=== PATIENT | female | born 1990 | race Caucasian/White ===

== ENCOUNTER → 2017-09-05 | Outpatient (CLI) | payer OTHER, BC | LOC: OD 08:51 | PROVIDERS: ATTEND Obstetrics & Gynecology Reproductive Endocrinology | DX: Z32.01 Encounter for pregnancy test, result positive (principal); N97.9 Female infertility, unspecified | CPT/HCPCS: 36415; 84144; 84702 ==

== ENCOUNTER → 2017-09-07 | Outpatient (CLI) | payer OTHER, BC | LOC: OD 07:24 | PROVIDERS: ATTEND Obstetrics & Gynecology Reproductive Endocrinology | DX: Z32.01 Encounter for pregnancy test, result positive (principal) | CPT/HCPCS: 36415; 84144; 84702 ==

== ENCOUNTER 2017-10-31 12:47 | Emergency (ER) | payer OTHER, BC ==
[2017-10-31] MEDS ORDERED: METOCLOPRAMIDE HCL 10 MG TABLET PO ONE (13:54)
--- NOTE | 2017-10-31 14:01 | ER Document Report ---
ED Medical Screen (RME) - General Chief Complaint: Abdominal Cramping Stated Complaint: ABDOMINAL PAIN Time Seen by Provider: 10/31/17 13:51 Mode of Arrival: Ambulatory Information source: Patient Notes: Pt 12 weeks with single gestation after losing 2 of triplet gestation who presents to the ER today for nausea, vomiting, cramping. She has diclegis and zofran at home but they didn't help, pt vomited in waiting room here. TRAVEL OUTSIDE OF THE [place] IN LAST 30 DAYS: No - Related Data Allergies/Adverse Reactions: No Known Allergies Allergy (Verified 10/31/17 13:00) Past Medical History - General Information source: Patient Review of Systems - Review of Systems Gastrointestinal: See HPI Physical Exam - Vital signs Vitals: Temp Pulse Resp BP Pulse Ox 99.2 F 101 H 18 132/79 H 100 10/31/17 13:09 10/31/17 13:09 10/31/17 13:09 10/31/17 13:09 10/31/17 13:09 - Notes Notes: General: NAD, smiling Course - Vital Signs Vital signs: Temp Pulse Resp BP Pulse Ox 99.2 F 101 H 18 132/79 H 100 10/31/17 13:09 10/31/17 13:09 10/31/17 13:09 10/31/17 13:09 10/31/17 13:09 Doctor's Discharge - Discharge Referrals: LOCALMD,NO [Primary Care Provider] - Follow up as needed
[2017-10-31 14:42] LABS: ABSOLUTE BASOPHILS # (AUTO) 0.1 10^3/uL (0.0-0.2); ABSOLUTE LYMPHOCYTES (AUTO) 2.3 10^3/uL (0.5-4.7); ABSOLUTE MONOCYTES (AUTO) 0.5 10^3/uL (0.1-1.4); ABSOLUTE NEUT (AUTO) 11.4 10^3/uL (1.7-8.2); BASOPHILS % (AUTO) 0.5 % (0-2); EOSINOPHILS % (AUTO) 0.2 % (0-6); HEMATOCRIT 34.6 % (36.0-47.0); HEMOGLOBIN 11.5 g/dL (12.0-15.5); LYMPHOCYTES % (AUTO) 16.2 % (13-45); MEAN CORPUSCULAR HEMOGLOBIN 28.6 pg (27.0-33.4); MEAN CORPUSCULAR HGB CONC 33.3 g/dL (32.0-36.0); MEAN CORPUSCULAR VOLUME 86 fl (80-97); MONOCYTES % (AUTO) 3.2 % (3-13); PLATELET COUNT 456 10^3/uL (150-450); RED BLOOD COUNT 4.03 10^6/uL (3.72-5.28); RED CELL DISTRIBUTION WIDTH 14.7 % (11.5-14.0); SEGMENTED NEUTROPHILS % (AUTO) 79.9 % (42-78); TOTAL CELLS COUNTED % (AUTO) 100 %; WHITE BLOOD COUNT 14.3 10^3/uL (4.0-10.5)
[2017-10-31 14:59] LABS: ALANINE AMINOTRANSFERASE 20 U/L (9-52); ALBUMIN 3.7 g/dL (3.5-5.0); ALKALINE PHOSPHATASE 96 U/L (38-126); ANION GAP 13 (5-19); ASPARTATE AMINO TRANSFERASE 19 U/L (14-36); BILIRUBIN,DIRECT 0.3 mg/dL (0.0-0.4); BILIRUBIN,TOTAL 0.3 mg/dL (0.2-1.3); BLOOD UREA NITROGEN 8 mg/dL (7-20); CALCIUM 9.9 mg/dL (8.4-10.2); CARBON DIOXIDE 22 mmol/L (22-30); CHLORIDE 107 mmol/L (98-107); GLUCOSE 78 mg/dL (75-110); SODIUM 141.8 mmol/L (137-145); TOTAL PROTEIN 6.7 g/dL (6.3-8.2)
--- NOTE | 2017-10-31 15:03 | ER Document Report ---
ED General - General Chief Complaint: Abdominal Cramping Stated Complaint: ABDOMINAL PAIN Time Seen by Provider: 10/31/17 13:51 Mode of Arrival: Ambulatory Notes: 27-year-old female presents emergency department with complaints of lower abdominal pain, nausea, vomiting. Patient is 12 weeks . She has been following up with her [employer]IST. She has had ultrasounds done that showed a live intrauterine . Patient states that she contacted her [employer] SPECIALIST's office today and was told to go to the emergency department for an evaluation. Patient denies any vaginal bleeding, vaginal discharge, dysuria, hematuria. She describes the abdominal pain as a cramping sensation in the suprapubic area. No radiation of the pain. No alleviating or exacerbating factors. TRAVEL OUTSIDE OF THE [place] IN LAST 30 DAYS: No - HPI Onset: This morning Onset/Duration: Gradual Quality of pain: Achy, Cramping Severity: Mild Pain Level: 4 Associated symptoms: Nausea, Vomiting Exacerbated by: Denies Relieved by: Denies Similar symptoms previously: No Recently seen / treated by doctor: No - Related Data Allergies/Adverse Reactions: No Known Allergies Allergy (Verified 10/31/17 13:00) Past Medical History - General Information source: Patient - Social History Smoking Status: Never Smoker Family History: Reviewed & Not Pertinent Review of Systems - Review of Systems Constitutional: No symptoms reported EENT: No symptoms reported Cardiovascular: No symptoms reported Respiratory: No symptoms reported Gastrointestinal: Abdominal pain, Nausea, Vomiting Genitourinary: No symptoms reported Female Genitourinary: No symptoms reported Musculoskeletal: No symptoms reported Skin: No symptoms reported Neurological/Psychological: No symptoms reported -: Yes All other systems reviewed and negative Physical Exam - Vital signs Vitals: Temp Pulse Resp BP Pulse Ox 99.2 F 101 H 18 132/79 H 100 10/31/17 13:09 10/31/17 13:09 10/31/17 13:09 10/31/17 13:09 10/31/17 13:09 Interpretation: Normal - Notes Notes: PHYSICAL EXAMINATION: GENERAL: Well-appearing, well-nourished and in no acute distress. HEAD: Atraumatic, normocephalic. EYES: Pupils equal round and reactive to light, extraocular movements intact, conjunctiva are normal. ENT: Nares patent, oropharynx clear without exudates. Moist mucous membranes. NECK: Normal range of motion, supple without lymphadenopathy LUNGS: Breath sounds clear to auscultation bilaterally and equal. No wheezes rales or rhonchi. HEART: Regular rate and rhythm without murmurs ABDOMEN: Soft, suprapubic tenderness to palpation, nondistended abdomen. No guarding, no rebound. No masses appreciated. Female : deferred Musculoskeletal: Normal range of motion, no pitting or edema. No cyanosis. NEUROLOGICAL: Cranial nerves grossly intact. Normal speech, normal gait. Normal sensory, motor exams PSYCH: Normal mood, normal affect. SKIN: Warm, Dry, normal turgor, no rashes or lesions noted. Course - Re-evaluation Re-evalutation: 10/31/17 18:24 Labs and imaging obtained. WBC slightly elevated. UA significant for bacteruria , 7 WBCs, calcium oxalate. Patient is having suprapubic cramping. No RLQ tenderness to palpation. No rebound or guarding. Pelvic us done. Live IUP at 12 weeks 3 days seen. Heart rate of 165. I will start the patient on keflex for the bacturia. Patient told to take tylenol for symptom relief and to follow up with her OB this week as scheduled. Patient is agreeable with the plan of care. 10/31/17 18:26 - Vital Signs Vital signs: Temp Pulse Resp BP Pulse Ox 99.2 F 101 H 18 132/79 H 100 10/31/17 13:09 10/31/17 13:09 10/31/17 13:09 10/31/17 13:09 10/31/17 13:09 - Laboratory Result Diagrams: 10/31/17 14:14 10/31/17 14:14 Laboratory results interpreted by me: 10/31/17 10/31/17 10/31/17 14:14 14:14 14:14 WBC 14.3 H Hgb 11.5 L Hct 34.6 L RDW 14.7 H Plt Count 456 H Seg Neutrophils % 79.9 H Absolute Neutrophils 11.4 H Creatinine 0.50 L Beta HCG, Quant Urine Ketones TRACE H 10/31/17 14:14 WBC Hgb Hct RDW Plt Count Seg Neutrophils % Absolute Neutrophils Creatinine Beta HCG, Quant 49590.00 H Urine Ketones Discharge - Discharge Clinical Impression: Suprapubic cramping, Antepartum asymptomatic bacteriuria Condition: Stable Disposition: HOME, SELF-CARE Instructions: Abdominal Pain ([facility]) Prescriptions: Cephalexin Monohydrate [Keflex 500 mg Capsule] 500 mg PO Q6H 5 Days #28 capsule Referrals: CHRIS REYEZ [NO LOCAL MD] - Follow up as needed LIVIA LEDEZMA MD [ACTIVE STAFF] - Follow up as needed
[2017-10-31 16:59] LABS: AMORPHOUS SEDIMENT,URINE TRACE /HPF; APPEARANCE,URINE TURBID; BILIRUBIN,URINE NEGATIVE (NEGATIVE); CALCIUM OXALATE CRYSTALS,URINE TOO NUMEROUS TO CNT /HPF; COLOR,URINE YELLOW; GLUCOSE, URINE NEGATIVE (NEGATIVE); KETONES,URINE TRACE mg/dL (NEGATIVE); LEUKOCYTE ESTERASE,URINE NEGATIVE (NEGATIVE); NITRITE,URINE NEGATIVE (NEGATIVE); PROTEIN,URINE NEGATIVE (NEGATIVE); URINE SPECIFIC GRAVITY 1.026; UROBILINOGEN,URINE NEGATIVE mg/dL (<2.0)
--- NOTE | 2017-10-31 18:17 | RADIOLOGY REPORT (SQ) ---
EXAM DESCRIPTION: U/S WH2ROMD TRNABD 1GES W/ODOP COMPLETED DATE/TIME: 10/31/2017 5:52 pm REASON FOR STUDY: abdominal pain, 12 weeks COMPARISON: None. TECHNIQUE: Transabdominal static and realtime grayscale images acquired of the pelvis. Additional se lected spectral and color Doppler images recorded. All images stored on PACs. [facility],881 CLINICAL DATES: LMP 08/08/2017. 12 weeks 0 days LIMITATIONS: None. FINDINGS: FETUS: Living intrauterine . ULTRASOUND EGA: 12 weeks 3 days ULTRASOUND SHRUTHI: 05/12/2018 CRL: 5.9 cm. FHR: 165 beats per minute. SUBCHORIONIC BLEED: No SIZE OF BLEED: Not applicable. UTERUS: No masses or anomalies. 14.8 x 5.2 x 10.2 cm. CERVICAL LENGTH: 3.3 cm. Closed. RIGHT ADNEXA: Normal ovary with normal vascular flow. 6 x 2.9 x 3 cm. There is a 2.3 x 2.7 x 2.3 cm cyst. No adnexal free fluid. No adnexal masses. LEFT ADNEXA: Normal ovary with normal vascular flow. 3.7 x 3.1 x 2.7 cm. No adnexal free fluid. No adnexal masses. FREE FLUID: None. OTHER: No other significant finding. IMPRESSION: LIVING INTRAUTERINE . EGA 12 weeks 3 days Trimester of : First - 0 to 13 weeks. TECHNICAL DOCUMENTATION: JOB ID: [id number] [employer]- All Rights Reserved rev Reading location - IP/workstation name: [email or web address]
[2017-10-31 19:08] VITALS: BP 135/88
== END 2017-10-31 19:08 | disposition home or self-care (01) ==
LOC: ER 12:47
DX: O28.8 Other abnormal findings on antenatal screening of mother (principal); O21.9 Vomiting of pregnancy, unspecified; O26.891 Other specified pregnancy related conditions, first trimester; R10.30 Lower abdominal pain, unspecified; Z3A.12 12 weeks gestation of pregnancy
CPT/HCPCS: 36415; 76801; 80053; 81001; 84702; 85025; 99284

== ENCOUNTER 2018-02-27 10:35 | Outpatient (CLI) | payer BC | END 2018-02-27 11:35 | disposition home or self-care (01) | LOC: LC 10:35 | PROVIDERS: ATTEND Obstetrics & Gynecology | PROC: 4A1HXCZ Monitoring of Products of Conception, Cardiac Rate, External Approach (ICD-10-PCS; principal; 2018-02-27) | DX: O36.8130 Decreased fetal movements, third trimester, not applicable or unspecified (principal); Z3A.29 29 weeks gestation of pregnancy ==

== ENCOUNTER 2018-03-17 14:50 | Outpatient (CLI) | payer BC ==
[2018-03-17 15:38] LABS: AMORPHOUS SEDIMENT,URINE TRACE /HPF; APPEARANCE,URINE TURBID; BILIRUBIN,URINE NEGATIVE (NEGATIVE); COLOR,URINE YELLOW; GLUCOSE, URINE NEGATIVE (NEGATIVE); KETONES,URINE NEGATIVE (NEGATIVE); LEUKOCYTE ESTERASE,URINE TRACE (NEGATIVE); NITRITE,URINE POSITIVE (NEGATIVE); PROTEIN,URINE NEGATIVE (NEGATIVE); URINE SPECIFIC GRAVITY 1.015; UROBILINOGEN,URINE NEGATIVE mg/dL (<2.0)
[2018-03-17 15:45] LABS: URINE AMPHETAMINES SCREEN NEGATIVE; URINE BARBITURATES SCREEN NEGATIVE; URINE BENZODIAZEPINES SCREEN NEGATIVE; URINE COCAINE SCREEN NEGATIVE; URINE MARIJUANA (THC) SCREEN NEGATIVE; URINE METHADONE SCREEN NEGATIVE; URINE PHENCYCLIDINE SCREEN NEGATIVE
[2018-03-17 16:05] LABS: UR PRO/CREAT RATIO RESULT 0.2 mg/mg (0.0-0.2); URINE CREATININE 92.3 mg/dL (16-327); URINE PROTEIN 20.2 mg/dL (<12)
[2018-03-17 16:29] LABS: ABSOLUTE LYMPHOCYTES (AUTO) 1.9 10^3/uL (0.5-4.7); ABSOLUTE MONOCYTES (AUTO) 0.5 10^3/uL (0.1-1.4); ABSOLUTE NEUT (AUTO) 9.1 10^3/uL (1.7-8.2); BASOPHILS % (AUTO) 0.2 % (0-2); EOSINOPHILS % (AUTO) 0.3 % (0-6); HEMATOCRIT 29.2 % (36.0-47.0); HEMOGLOBIN 9.7 g/dL (12.0-15.5); LYMPHOCYTES % (AUTO) 16.1 % (13-45); MEAN CORPUSCULAR HEMOGLOBIN 27.5 pg (27.0-33.4); MEAN CORPUSCULAR VOLUME 83 fl (80-97); MONOCYTES % (AUTO) 4.5 % (3-13); PLATELET COUNT 417 10^3/uL (150-450); RED BLOOD COUNT 3.51 10^6/uL (3.72-5.28); RED CELL DISTRIBUTION WIDTH 16.4 % (11.5-14.0); SEGMENTED NEUTROPHILS % (AUTO) 78.9 % (42-78); TOTAL CELLS COUNTED % (AUTO) 100 %; WHITE BLOOD COUNT 11.5 10^3/uL (4.0-10.5)
[2018-03-17 16:46] LABS: ALANINE AMINOTRANSFERASE 19 U/L (9-52); ALBUMIN 3.1 g/dL (3.5-5.0); ALKALINE PHOSPHATASE 159 U/L (38-126); ANION GAP 12 (5-19); ASPARTATE AMINO TRANSFERASE 24 U/L (14-36); BILIRUBIN,DIRECT 0.1 mg/dL (0.0-0.4); BILIRUBIN,TOTAL 0.4 mg/dL (0.2-1.3); BLOOD UREA NITROGEN 4 mg/dL (7-20); CALCIUM 9.3 mg/dL (8.4-10.2); CARBON DIOXIDE 23 mmol/L (22-30); CHLORIDE 106 mmol/L (98-107); GLUCOSE 74 mg/dL (75-110); POTASSIUM 3.7 mmol/L (3.6-5.0); URIC ACID 3.7 mg/dL (2.5-6.2)
== END 2018-03-17 17:15 | disposition home or self-care (01) ==
LOC: LC 14:50
PROVIDERS: ATTEND Obstetrics & Gynecology Gynecology
PROC: 4A1HXCZ Monitoring of Products of Conception, Cardiac Rate, External Approach (ICD-10-PCS; principal; 2018-03-17)
DX: O16.3 Unspecified maternal hypertension, third trimester (principal); Z3A.31 31 weeks gestation of pregnancy
CPT/HCPCS: 36415; 80053; 80307; 81001; 82570; 83615; 84156; 84550; 85025

== ENCOUNTER 2018-03-27 13:03 | Observation (INO) | payer BC ==
[2018-03-27 14:22] LABS: AMORPHOUS SEDIMENT,URINE 1+ /HPF; APPEARANCE,URINE CLOUDY; BILIRUBIN,URINE NEGATIVE (NEGATIVE); CALCIUM OXALATE CRYSTALS,URINE FEW /HPF; COLOR,URINE YELLOW; GLUCOSE, URINE NEGATIVE (NEGATIVE); KETONES,URINE TRACE mg/dL (NEGATIVE); LEUKOCYTE ESTERASE,URINE NEGATIVE (NEGATIVE); NITRITE,URINE NEGATIVE (NEGATIVE); PROTEIN,URINE NEGATIVE (NEGATIVE); URINE SPECIFIC GRAVITY 1.016; UROBILINOGEN,URINE NEGATIVE mg/dL (<2.0)
[2018-03-27] MEDS ORDERED: ACETAMINOPHEN WITH CODEINE #3 TABLET ONE (14:29)
[2018-03-27] MEDS ORDERED: ACETAMINOPHEN WITH CODEINE #3 TABLET PO ONE (14:30)
[2018-03-27 14:38] LABS: URINE AMPHETAMINES SCREEN NEGATIVE; URINE BARBITURATES SCREEN NEGATIVE; URINE BENZODIAZEPINES SCREEN NEGATIVE; URINE COCAINE SCREEN NEGATIVE; URINE MARIJUANA (THC) SCREEN NEGATIVE; URINE METHADONE SCREEN NEGATIVE; URINE PHENCYCLIDINE SCREEN NEGATIVE
[2018-03-27 14:41] LABS: UR PRO/CREAT RATIO RESULT 0.3 mg/mg (0.0-0.2); URINE CREATININE 93.3 mg/dL (16-327); URINE PROTEIN 26.7 mg/dL (<12)
[2018-03-27 14:47] LABS: ABSOLUTE LYMPHOCYTES (AUTO) 1.9 10^3/uL (0.5-4.7); ABSOLUTE MONOCYTES (AUTO) 0.5 10^3/uL (0.1-1.4); ABSOLUTE NEUT (AUTO) 9.1 10^3/uL (1.7-8.2); BASOPHILS % (AUTO) 0.3 % (0-2); EOSINOPHILS % (AUTO) 0.3 % (0-6); HEMATOCRIT 29.8 % (36.0-47.0); HEMOGLOBIN 10.1 g/dL (12.0-15.5); LYMPHOCYTES % (AUTO) 16.8 % (13-45); MEAN CORPUSCULAR HEMOGLOBIN 27.7 pg (27.0-33.4); MEAN CORPUSCULAR HGB CONC 33.9 g/dL (32.0-36.0); MEAN CORPUSCULAR VOLUME 82 fl (80-97); MONOCYTES % (AUTO) 4.6 % (3-13); PLATELET COUNT 443 10^3/uL (150-450); RED BLOOD COUNT 3.64 10^6/uL (3.72-5.28); RED CELL DISTRIBUTION WIDTH 16.3 % (11.5-14.0); TOTAL CELLS COUNTED % (AUTO) 100 %; WHITE BLOOD COUNT 11.6 10^3/uL (4.0-10.5)
[2018-03-27 15:02] LABS: ALANINE AMINOTRANSFERASE 16 U/L (9-52); ALBUMIN 3.1 g/dL (3.5-5.0); ALKALINE PHOSPHATASE 170 U/L (38-126); ANION GAP 13 (5-19); ASPARTATE AMINO TRANSFERASE 26 U/L (14-36); BILIRUBIN,DIRECT 0.1 mg/dL (0.0-0.4); BILIRUBIN,TOTAL 0.4 mg/dL (0.2-1.3); BLOOD UREA NITROGEN 5 mg/dL (7-20); CALCIUM 9.7 mg/dL (8.4-10.2); CARBON DIOXIDE 22 mmol/L (22-30); CHLORIDE 105 mmol/L (98-107); GLUCOSE 82 mg/dL (75-110); POTASSIUM 3.6 mmol/L (3.6-5.0); SODIUM 140.4 mmol/L (137-145); URIC ACID 3.8 mg/dL (2.5-6.2)
--- NOTE | 2018-03-27 16:30 | Admission Physical ---
Datetime Report Generated by CPN: 03/27/2018 16:30 CURRENT ADMISSION Chief Complaint: Other Chief Complaint Other: headache on chronic T3 Admit Impression : , Intrauterine Admit Plan: Admit to Unit; Observation/Evaluation ALLERGIES Medication Allergies: No Medication Allergies: No Known Allergies (03/17/2018) Latex: Latex Allergies OBSTETRICAL HISTORY EDC: 05/15/2018 00:00 : 1 SEE RECORDS Alcohol: No Marijuana : No Cocaine: No Other Illicit Drugs: No PHYSICAL EXAM General: Normal HEENT: Normal Neurologic: Normal Thyroid: Deferred Heart: Normal Lungs: Normal Breast: Deferred Back: Normal Abdomen: Normal Genitourinary Exam: Normal Extremities: Normal DTRs: Normal Pelvic Type: Adequate Vital Signs: Reviewed FETUS A EGA: 33.0 Monitoring: External US FHR- Baseline: 130 Variability: Moderate 6-25bpm Accelerations: 15X15 Decelerations: None FHR Category: Category I Presentation: Vertex Admit Comment: 27yo at 33+0ega presents for evaluation for PreE from [facility]. Pt with reported BPs at home 140s-160s/90-120. BP at [facility] was 155/104. GDm poss pregestation DM with NPH and Reg . This is IUI (apparently was initially triplets with spontaneous reduction to fierro). Bipolar disorder. H/o kidney stones and gallbladder issues. Pt with HAs for the last 3 wks and was started on T#[address] Wolfe. She takes this daily for HAs. Labs unremarkable except P:Cr ratio now 0.3 - prior 24 hr UTP was 224 on 03/20. Will admit and see if can wean off T#3. Accucheck is in 60s - will allow to eat and will adjust insulin if needed. Not seen neuro for HAs yet. Admit and monitor on floor and will collect 24 hr UTP INFORMED CONSENT Informed Consent Obtained: Vaginal Delivery; Risks, Benefits and Alternatives Discussed Signature: with User ID: [email or web address]
--- NOTE | 2018-03-27 17:42 | Non Stress Test Report ---
Non Stress Test Datetime Report Generated by CPN: 03/27/2018 17:41 DEMOGRAPHIC EGA NST: 33.0 INDICATION Indication for Study: Other Indication for Study (NST) Other: pre-e work up VITAL SIGNS Temperature - NST: 97.6 Pulse - NST: 100 RESP - NST: 18 NBPSYS NST: 134 NBPDIA NST: 69 MONITORING Monitor Explained: Monitor Explained; Test Explained; Patient Verbalized Understanding Time on Monitor: 03/27/2018 16:34 Time off Monitor: 03/27/2018 16:54 NST Duration: 20 NST INTERVENTIONS NST Interventions: PO Hydration Physician Notified NST: Evga BABY A: [id number] BABY A Movement : Present Contraction Frequency : 0 FHR Baseline : 145 Accelerations : 15X15 Decelerations : None Variability : Moderate 6-25bpm NST Review: Meets Criteria for Reactive NST NST Review and Verified By : PURA Tamayo Results: Reactive NST REPORT Report Trigger: Send Report
[2018-03-27] MEDS: METFORMIN HCL 500 MG TABLET PO SCH (18:49)
[2018-03-27] MEDS: DOCUSATE SODIUM 100 MG CAPSULE PO SCH (18:49)
[2018-03-27] MEDS: NITROFURANTOIN MONOHYD/M-CRYST 100 MG CAPSULE PO SCH (18:49)
[2018-03-27] MEDS ORDERED: BUTALB/ACETAMINOPHEN/CAFFEINE 1 TAB EACH PO ONE ×3 (19:48→19:49)
[2018-03-27] MEDS ORDERED: INSULIN NPH (ISOPHANE), HUMAN 100 UNIT/ML 3 ML SUBCUT SCH (22:00)
[2018-03-28] MEDS ORDERED: BUTALB/ACETAMINOPHEN/CAFFEINE 1 TAB EACH PO ONE (03:00)
[2018-03-28] MEDS ORDERED: INSULIN NPH (ISOPHANE), HUMAN 100 UNIT/ML 3 ML SUBCUT SCH (08:00)
[2018-03-28] MEDS ORDERED: INSULIN REG, HUMAN 100 UNIT/ML 3 ML VIAL (PYX) SUBCUT SCH ×3 (08:00→16:00)
[2018-03-28] MEDS ORDERED: ESCITALOPRAM OXALATE 10 MG TABLET PO SCH (10:00)
[2018-03-28] MEDS: METFORMIN HCL 500 MG TABLET PO SCH (10:28)
[2018-03-28] MEDS: NITROFURANTOIN MONOHYD/M-CRYST 100 MG CAPSULE PO SCH (10:28)
[2018-03-28] MEDS: DOCUSATE SODIUM 100 MG CAPSULE PO SCH (10:28)
[2018-03-28] MEDS ORDERED: GLYCERIN/WITCH HAZEL LEAF 1 EACH MED..PAD TP ONE (10:30)
[2018-03-28] MEDS: MAGNESIUM OXIDE 400 MG TABLET PO SCH ×2 (12:20→14:12)
[2018-03-28] MEDS ORDERED: BUTALB/ACETAMINOPHEN/CAFFEINE 1 TAB EACH PO PRN (13:29)
[2018-03-28] MEDS ORDERED: FAMOTIDINE 20 MG TABLET PO ONE (14:00)
[2018-03-28 15:58] LABS: URINE PROTEIN 22.4 mg/dL (<12)
[2018-03-28 16:01] LABS: 24 HOUR URINE PROTEIN RESULT 379 mg/day (42-225)
--- NOTE | 2018-03-28 18:05 | PDOC DISCHARGE SUMMARY ---
General - Admit/Disc Date/PCP Admission Date/Primary Care Provider: 03/27/18 16:03 BUDDY SAGASTUME PA-C Discharge Date: 03/28/18 - Discharge Diagnosis (1) Gestational diabetes mellitus (GDM) in childbirth, insulin controlled Is this a current diagnosis for this admission?: Yes (2) Gestational hypertension Is this a current diagnosis for this admission?: Yes (3) Headache Is this a current diagnosis for this admission?: Yes - Additional Information Home Medications: Docusate Sodium [Colace] 100 mg PO BID 02/27/18 Escitalopram Oxalate [Lexapro 10 mg Tablet] 10 mg PO DAILY 02/27/18 Esomeprazole Magnesium [Nexium] 20 mg PO DAILY 02/27/18 Insulin Regular, Human [Novolin R (Reg) Insulin 100 unit/mL] 16 unit SUBCUT ACBRKFST 02/27/18 Insulin Regular, Human [Novolin R (Reg) Insulin 100 unit/mL] 18 unit SUBCUT ACLUNCH 02/27/18 Insulin Regular, Human [Novolin R (Reg) Insulin 100 unit/mL] 22 unit SUBCUT ACSUPPER 02/27/18 Magnesium Oxide 100 mg PO DAILY 02/27/18 NPH, Human Insulin Isophane [Novolin N (NPH) Insulin 100 unit/mL] 30 unit SUBCUT ACBRKFST 02/27/18 NPH, Human Insulin Isophane [Novolin N (NPH) Insulin 100 unit/mL] 64 unit SUBCUT HSP PRN 02/27/18 Vit Calc,Iron,Folic [ Vitamins] 1 each PO DAILY 02/27/18 Acetaminophen with Codeine [Tylenol #3 Tablet] 1 tab PO ASDIR PRN 03/17/18 Metformin HCl 1 tab PO BID 03/27/18 Nitrofurantoin Monohyd/M-Cryst [Macrobid 100 mg Capsule] 1 tab PO BID 03/27/18 History of Present Illness History of Present Illness: VIOLA HOLLY is a 27 year old female Hospital Course Hospital Course: Pt is at 33 3/7 wks admitted for 24 hour urine based on increased BPs and a headache that has responded well to Fiorocet. 24 hour urine protein returned as 379. Her headached resolves easily with the Fiorocet and BPs are not in severe range. Physical Exam - Physical Exam Vital Signs: Temp Pulse Resp BP Pulse Ox 98.2 F 113 H 18 148/99 H 99 03/28/18 15:05 03/28/18 15:05 03/28/18 15:05 03/28/18 15:05 03/28/18 15:05 Intake & Output 03/27/18 03/28/18 03/29/18 06:59 06:59 06:59 Intake Total 500 Balance 500 Weight 111.2 kg General appearance: PRESENT: no acute distress, cooperative Vascular exam: PRESENT: normal capillary refill Extremities exam: PRESENT: other - no edema, no clubbing, DTRs +1 - Obstetrical Exam Fundal Height: 3/u - 4/u Result Laboratory Results: 03/27/18 14:25 03/27/18 14:25 03/28/18 14:55 Ur 24 Hour Volume 1690 Ur Total Protein 24 Hr 379 H Plan Discharge Plan: will discharge and montiro closely as outpatient. Patient has appt on Th for NST already so instructed to keep that appt. Will not start antihypertensives at this time due to concerns of placental compensation and compromise. May need to consider labetolol if bps do climb. Time Spent: Less than 30 Minutes
[2018-03-28 18:16] VITALS: BP 120/67
== END 2018-03-28 18:48 | disposition home or self-care (01) ==
LOC: LC 13:03 → LR 16:03 → 2N 18:10
PROVIDERS: ADMIT Student in an Organized Health Care Education/Training Program; ATTEND Student in an Organized Health Care Education/Training Program
PROC: 4A0HXCZ Measurement of Products of Conception, Cardiac Rate, External Approach (ICD-10-PCS; principal; 2018-03-27)
PROC: 4A0HXCZ Measurement of Products of Conception, Cardiac Rate, External Approach (ICD-10-PCS; 2018-03-28)
DX: O24.414 Gestational diabetes mellitus in pregnancy, insulin controlled (principal); O13.3 Gestational [pregnancy-induced] hypertension without significant proteinuria, third trimester; O26.893 Other specified pregnancy related conditions, third trimester; R51 Headache; Z3A.33 33 weeks gestation of pregnancy; Z79.899 Other long term (current) drug therapy
CPT/HCPCS: 59025 ×2; 36415; 82962 ×2; 83615; 84156 ×2; 84550; 82570; 85025; 80053; 81001; 80307; 83036; G0378 ×2; G0379; J3490 ×3; J1815 ×2; J8499 ×2

== ENCOUNTER 2018-03-30 10:41 | Outpatient (CLI) | payer BC ==
--- NOTE | 2018-03-30 11:30 | Non Stress Test Report ---
Non Stress Test Datetime Report Generated by CPN: 03/30/2018 11:30 DEMOGRAPHIC EGA NST: 33.3 INDICATION Indication for Study: Diabetes Mellitus VITAL SIGNS Temperature - NST: 98.0 Pulse - NST: 108 RESP - NST: 18 NBPSYS NST: 133 NBPDIA NST: 75 MONITORING Monitor Explained: Monitor Explained; Test Explained; Patient Verbalized Understanding Time on Monitor: 03/30/2018 10:53 Time off Monitor: 03/30/2018 11:23 NST Duration: 30 NST INTERVENTIONS NST Interventions: PO Hydration Physician Notified NST: Dr Manning BABY A: [id number] BABY A Movement : Present Contraction Frequency : irritability FHR Baseline : 150 Accelerations : 15X15 Decelerations : None Variability : Moderate 6-25bpm NST Review: Meets Criteria for Reactive NST NST Review and Verified By : William López RN NST Results: Reactive NST REPORT Report Trigger: Send Report
== END 2018-03-30 11:26 | disposition home or self-care (01) ==
LOC: LC 10:41
PROVIDERS: ATTEND Obstetrics & Gynecology Gynecology
PROC: 4A1HXCZ Monitoring of Products of Conception, Cardiac Rate, External Approach (ICD-10-PCS; principal; 2018-03-30)
DX: O24.419 Gestational diabetes mellitus in pregnancy, unspecified control (principal); Z3A.33 33 weeks gestation of pregnancy
CPT/HCPCS: 59025

== ENCOUNTER 2018-04-03 09:10 | Inpatient (IN) | payer BC ==
[2018-04-03 11:27] LABS: ABSOLUTE EOSINOPHILS # (AUTO) 0.1 10^3/uL (0.0-0.6); ABSOLUTE LYMPHOCYTES (AUTO) 1.8 10^3/uL (0.5-4.7); ABSOLUTE MONOCYTES (AUTO) 0.6 10^3/uL (0.1-1.4); ABSOLUTE NEUT (AUTO) 9.2 10^3/uL (1.7-8.2); BASOPHILS % (AUTO) 0.3 % (0-2); EOSINOPHILS % (AUTO) 0.5 % (0-6); HEMATOCRIT 28.6 % (36.0-47.0); HEMOGLOBIN 9.4 g/dL (12.0-15.5); LYMPHOCYTES % (AUTO) 15.3 % (13-45); MEAN CORPUSCULAR HEMOGLOBIN 26.7 pg (27.0-33.4); MEAN CORPUSCULAR HGB CONC 32.9 g/dL (32.0-36.0); MEAN CORPUSCULAR VOLUME 81 fl (80-97); MONOCYTES % (AUTO) 4.8 % (3-13); PLATELET COUNT 420 10^3/uL (150-450); RED BLOOD COUNT 3.53 10^6/uL (3.72-5.28); RED CELL DISTRIBUTION WIDTH 16.4 % (11.5-14.0); SEGMENTED NEUTROPHILS % (AUTO) 79.1 % (42-78); TOTAL CELLS COUNTED % (AUTO) 100 %; WHITE BLOOD COUNT 11.7 10^3/uL (4.0-10.5)
[2018-04-03] MEDS ORDERED: BUTALB/ACETAMINOPHEN/CAFFEINE 1 TAB EACH ONE (11:41)
[2018-04-03 11:49] LABS: ALANINE AMINOTRANSFERASE 18 U/L (9-52); ALBUMIN 2.9 g/dL (3.5-5.0); ALKALINE PHOSPHATASE 179 U/L (38-126); ANION GAP 12 (5-19); ASPARTATE AMINO TRANSFERASE 26 U/L (14-36); BILIRUBIN,DIRECT 0.3 mg/dL (0.0-0.4); BILIRUBIN,TOTAL 0.4 mg/dL (0.2-1.3); BLOOD UREA NITROGEN 3 mg/dL (7-20); CALCIUM 9.2 mg/dL (8.4-10.2); CARBON DIOXIDE 23 mmol/L (22-30); CHLORIDE 105 mmol/L (98-107); GLUCOSE 64 mg/dL (75-110); POTASSIUM 3.5 mmol/L (3.6-5.0); SODIUM 139.9 mmol/L (137-145); TOTAL PROTEIN 5.6 g/dL (6.3-8.2); URIC ACID 3.9 mg/dL (2.5-6.2)
[2018-04-03 11:57] LABS: APPEARANCE,URINE SLIGHTLY-CLOUDY; BILIRUBIN,URINE NEGATIVE (NEGATIVE); CALCIUM OXALATE CRYSTALS,URINE MODERATE /HPF; COLOR,URINE YELLOW; GLUCOSE, URINE NEGATIVE (NEGATIVE); KETONES,URINE NEGATIVE (NEGATIVE); LEUKOCYTE ESTERASE,URINE NEGATIVE (NEGATIVE); NITRITE,URINE NEGATIVE (NEGATIVE); PROTEIN,URINE NEGATIVE (NEGATIVE); URINE SPECIFIC GRAVITY 1.014; UROBILINOGEN,URINE NEGATIVE mg/dL (<2.0)
[2018-04-03 12:12] LABS: UR PRO/CREAT RATIO RESULT 0.4 mg/mg (0.0-0.2); URINE CREATININE 84.9 mg/dL (16-327); URINE PROTEIN 30.9 mg/dL (<12)
[2018-04-03 12:20] LABS: URINE AMPHETAMINES SCREEN NEGATIVE; URINE BENZODIAZEPINES SCREEN NEGATIVE; URINE COCAINE SCREEN NEGATIVE; URINE MARIJUANA (THC) SCREEN NEGATIVE; URINE METHADONE SCREEN NEGATIVE; URINE PHENCYCLIDINE SCREEN NEGATIVE
[2018-04-03 12:34] LABS: URINE BARBITURATES SCREEN UNCONFIRMED POSITIVE
[2018-04-03] MEDS ORDERED: INSULIN REG, HUMAN 100 UNIT/ML 3 ML VIAL (PYX) SUBCUT SCH ×2 (12:59→13:00)
[2018-04-03] MEDS ORDERED: INSULIN REG, HUMAN 100 UNIT/ML 3 ML VIAL (PYX) ONE (13:07)
[2018-04-03] MEDS ORDERED: INSULIN NPH (ISOPHANE), HUMAN 100 UNIT/ML 3 ML SUBCUT SCH (16:00)
[2018-04-03] MEDS ORDERED: METFORMIN HCL 500 MG TABLET PO SCH (16:00)
[2018-04-03] MEDS: BUTALB/ACETAMINOPHEN/CAFFEINE 1 TAB EACH PO PRN (16:08)
[2018-04-03] MEDS: INSULIN REG, HUMAN 100 UNIT/ML 3 ML VIAL (PYX) SUBCUT SCH (17:16)
[2018-04-03] MEDS: DOCUSATE SODIUM 100 MG CAPSULE PO SCH (17:16)
[2018-04-03] MEDS ORDERED: GLYCERIN/WITCH HAZEL LEAF 1 EACH MED..PAD TP PRN (18:02)
[2018-04-03] MEDS ORDERED: DIBUCAINE 1% OINTMENT 28 GM PR PRN (18:03)
[2018-04-03] MEDS: INSULIN NPH (ISOPHANE), HUMAN 100 UNIT/ML 3 ML SUBCUT SCH (22:40)
[2018-04-04] MEDS: BUTALB/ACETAMINOPHEN/CAFFEINE 1 TAB EACH PO PRN ×3 (00:32→22:06)
[2018-04-04] MEDS: LANSOPRAZOLE 15 MG TAB.RAP.DR PO SCH (06:31)
[2018-04-04] MEDS ORDERED: [UNRECOGNIZED DRUG - OTHER] SUBCUT SCH (08:00)
[2018-04-04] MEDS ORDERED: INSULIN REG, HUMAN 100 UNIT/ML 3 ML VIAL (PYX) SUBCUT SCH (08:00)
[2018-04-04] MEDS ORDERED: INSULIN REGULAR HUMAN SUBCUT SCH ×2 (08:00→11:00)
[2018-04-04] MEDS: INSULIN NPH (ISOPHANE), HUMAN 100 UNIT/ML 3 ML SUBCUT SCH ×2 (08:14→22:07)
[2018-04-04] MEDS: METFORMIN HCL 500 MG TABLET PO SCH ×2 (08:15→16:14)
[2018-04-04] MEDS ORDERED: FERRIC CARBOXYMALTOSE INJ 750 MG/15 ML VIAL IV SCH (08:15)
[2018-04-04] MEDS: INSULIN REG, HUMAN 100 UNIT/ML 3 ML VIAL (PYX) SUBCUT SCH ×3 (08:15→17:16)
--- NOTE | 2018-04-04 09:59 | PDOC PROGRESS REPORT ---
Subjective Progress Note for:: 04/04/18 Subjective:: feeling well. no headache or blurry vision Reason For Visit: CHTN,SUPERIMPOSED PRE-ECLAMPSIA,IDDM Physical Exam - Physical Exam Vital Signs: Temp Pulse Resp BP Pulse Ox 98.2 F 102 H 20 136/82 H 99 04/04/18 07:56 04/04/18 07:56 04/04/18 07:56 04/04/18 07:56 04/04/18 07:56 Intake & Output 04/03/18 04/04/18 04/05/18 06:59 06:59 06:59 Intake Total 1040 480 Balance 1040 480 Weight 110 kg General appearance: PRESENT: no acute distress, cooperative GI/Abdominal exam: PRESENT: soft - nontender, gravid. - Obstetrical Exam Fundal Height: 3/u - 4/u Result Laboratory Results: 04/03/18 11:09 04/03/18 11:09 04/03/18 04/03/18 04/03/18 09:20 11:09 11:09 WBC 11.7 H RBC 3.53 L Hgb 9.4 L Hct 28.6 L MCV 81 MCH 26.7 L MCHC 32.9 RDW 16.4 H Plt Count 420 Seg Neutrophils % 79.1 H Lymphocytes % 15.3 Monocytes % 4.8 Eosinophils % 0.5 Basophils % 0.3 Absolute Neutrophils 9.2 H Absolute Lymphocytes 1.8 Absolute Monocytes 0.6 Absolute Eosinophils 0.1 Absolute Basophils 0.0 Sodium 139.9 Potassium 3.5 L Chloride 105 Carbon Dioxide 23 Anion Gap 12 BUN 3 L Creatinine 0.38 L Est GFR ( Amer) > 60 Est GFR (Non-Af Amer) > 60 Glucose 64 L Uric Acid 3.9 Calcium 9.2 Total Bilirubin 0.4 AST 26 ALT 18 Alkaline Phosphatase 179 H Total Protein 5.6 L Albumin 2.9 L Urine Color YELLOW Urine Appearance SLIGHTLY-CLOUDY Urine pH 6.0 Ur Specific [place] 1.014 Urine Protein NEGATIVE Urine Glucose (UA) NEGATIVE Urine Ketones NEGATIVE Urine Blood NEGATIVE Urine Nitrite NEGATIVE Ur Leukocyte Esterase NEGATIVE Urine WBC (Auto) 2 Urine RBC (Auto) 2 Assessment & Plan - Diagnosis (2) Gestational hypertension Qualifiers: Trimester: third trimester Qualified Code(s): O13.3 - Gestational [ -induced] hypertension without significant proteinuria, third trimester Is this a current diagnosis for this admission?: Yes (3) Headache Qualifiers: Headache chronicity pattern: episodic headache Is this a current diagnosis for this admission?: Yes - Inpatient Certification Based on my medical assessment, after consideration of the patient's comorbidities, presenting symptoms, or acuity I expect that the services needed warrant INPATIENT care.: Yes I certify that my determination is in accordance with my understanding of Medicare's requirements for reasonable and necessary INPATIENT services [42 CFR 412.3e].: Yes Medical Necessity: Need Close Monitoring Due to Risk of Patient Decompensation - Plan Summary Plan Summary: Per M recommendations will continue to monitor in the hospital due to increased risks of patient decompensation until 37 wks and then plan for delivery.
[2018-04-04] MEDS ORDERED: (PENDING PHARMACY ID) (Esomeprazole Magnesium [Nexium] 20 MG) PO SCH (10:00)
[2018-04-04] MEDS ORDERED: FERRIC CARBOXYMALTOSE 750 MG in NORMAL SALINE 250 ML IV ONE (10:00)
[2018-04-04] MEDS ORDERED: [UNRECOGNIZED DRUG - OTHER] SUBCUT SCH (11:00)
[2018-04-04] MEDS: DOCUSATE SODIUM 100 MG CAPSULE PO SCH ×2 (11:22→18:44)
[2018-04-04] MEDS: ESCITALOPRAM OXALATE 10 MG TABLET PO SCH (11:22)
[2018-04-04] MEDS: MAGNESIUM OXIDE 400 MG TABLET PO SCH (11:22)
[2018-04-05] MEDS: LANSOPRAZOLE 15 MG TAB.RAP.DR PO SCH (06:39)
[2018-04-05] MEDS: METFORMIN HCL 500 MG TABLET PO SCH ×2 (08:25→16:33)
[2018-04-05] MEDS: INSULIN NPH (ISOPHANE), HUMAN 100 UNIT/ML 3 ML SUBCUT SCH ×2 (08:25→21:55)
[2018-04-05] MEDS: INSULIN REG, HUMAN 100 UNIT/ML 3 ML VIAL (PYX) SUBCUT SCH ×4 (08:27→19:44)
[2018-04-05] MEDS: MAGNESIUM OXIDE 400 MG TABLET PO SCH (09:38)
[2018-04-05] MEDS: BUTALB/ACETAMINOPHEN/CAFFEINE 1 TAB EACH PO PRN ×2 (09:38→16:34)
[2018-04-05] MEDS: ESCITALOPRAM OXALATE 10 MG TABLET PO SCH (09:38)
[2018-04-05] MEDS: DOCUSATE SODIUM 100 MG CAPSULE PO SCH ×2 (09:38→18:04)
[2018-04-05] MEDS ORDERED: FUROSEMIDE INJ/PF 20 MG/2 ML SDV IV ONE (10:56)
[2018-04-05] MEDS ORDERED: FUROSEMIDE 20 MG TABLET PO ONE (12:15)
--- NOTE | 2018-04-05 14:14 | PDOC PROGRESS REPORT ---
Subjective Progress Note for:: 04/05/18 Subjective:: Denies MCFADDEN, blurry vision, RUQ pain, reports some joint pain and swelling in bilateral hands, also symptoms c/w CTS. Reason For Visit: CHTN,SUPERIMPOSED PRE-ECLAMPSIA,IDDM Physical Exam - Physical Exam Vital Signs: Temp Pulse Resp BP Pulse Ox 98.4 F 96 18 123/76 97 04/05/18 11:00 04/05/18 11:00 04/05/18 11:00 04/05/18 11:00 04/05/18 11:00 Intake & Output 04/04/18 04/05/18 04/06/18 06:59 06:59 06:59 Intake Total 1040 2145 680 Balance 1040 2145 680 Weight 110 kg 110.6 kg General appearance: PRESENT: no acute distress, well-developed, well-nourished Head exam: PRESENT: atraumatic, normocephalic Respiratory exam: PRESENT: clear to auscultation donis, symmetrical, unlabored Cardiovascular exam: PRESENT: RRR. ABSENT: diastolic murmur, rubs, systolic murmur Pulses: PRESENT: normal dorsalis pedis pul, +2 pedal pulses bilateral Vascular exam: PRESENT: normal capillary refill GI/Abdominal exam: PRESENT: normal bowel sounds, soft. ABSENT: distended, guarding, mass, organolmegaly, rebound, tenderness Rectal exam: PRESENT: deferred Extremities exam: PRESENT: full ROM. ABSENT: calf tenderness, clubbing, pedal edema Neurological exam: PRESENT: alert, awake, oriented to person, oriented to place , oriented to time, oriented to situation, CN II-XII grossly intact. ABSENT: motor sensory deficit Psychiatric exam: PRESENT: appropriate affect, normal mood. ABSENT: homicidal ideation, suicidal ideation Skin exam: PRESENT: dry, intact, warm. ABSENT: cyanosis, rash Result Laboratory Results: 04/03/18 11:09 04/03/18 11:09 Assessment & Plan - Diagnosis (1) Chronic hypertension with superimposed pre-eclampsia Is this a current diagnosis for this admission?: Yes Plan: Mild range BPs. WIll begin procardia. No baseline 24 hr UTP. 24 hr UTP on 03/28 was 379mg P:C ratio on 03/27 was 0.3 and now is 0.4 labs are stable - will repeat labs tomorrow Deliver for symptoms or severe features. Lasix 20mg po given to help with swelling. Diet changed to Carb and low sodium diet. Dr. Liset Garcia with [facility] has recommended that patient be admitted until delivery. Plan for delivery at 37wks. (2) Gestational diabetes mellitus (GDM) in childbirth, insulin controlled Is this a current diagnosis for this admission?: Yes Plan: Concern for possible pregestional DM (unknown baseline Hb A1c), ECHO was normal GDM dx at 17wks with 3 hr GTT of 107/217/?/? - unlikely to be simply GDM with this value. Hb A1c done on 03/27 and was 5.0 (after 16wks of diet and medications) Current meds: NPH , Reg , Metformin 250mg BID Will continue to get Accucheck fasting/2 hr PP values. Adjust insulin as needed. (3) Headache Qualifiers: Headache chronicity pattern: episodic headache Is this a current diagnosis for this admission?: Yes Plan: Chronic episodic MCFADDEN relieved with fioricet. When last admitted she was taking daily tylenol and T3. Continue to monitor. (4) Obesity Qualifiers: Body mass index: BMI 40.0-44.9 Is this a current diagnosis for this admission?: Yes Plan: Dr. Hidalgo consulted to [facility] for anesthesia plans for delivery (5) and insulin-dependent diabetes mellitus in third trimester Is this a current diagnosis for this admission?: Yes Plan: currently 34.4ega and see CHTN superimposed preE and GDM dx Cont low carb and low Na diet. SHRUTHI 05/13/2018 - SHRUTHI per [facility] BPP / on 04/03, Cont daily NSTs GBS to be done today. No EFW since Jan. Will get EFW today. - Time Time Spent with patient: 25-34 minutes Smoking Cessation Education: 3 to 10 minutes Medications reviewed and adjusted accordingly: Yes Anticipated discharge: Home Within: Other - Inpatient Certification Based on my medical assessment, after consideration of the patient's comorbidities, presenting symptoms, or acuity I expect that the services needed warrant INPATIENT care.: Yes I certify that my determination is in accordance with my understanding of Medicare's requirements for reasonable and necessary INPATIENT services [42 CFR 412.3e].: Yes Medical Necessity: Need Close Monitoring Due to Risk of Patient Decompensation Post Hospital Care: D/C Client Application Support Specialist Documentation
[2018-04-05] MEDS ORDERED: NIFEDIPINE 30 MG TAB.ER.24 PO ONE (14:45)
--- NOTE | 2018-04-05 16:51 | RADIOLOGY REPORT (SQ) ---
EXAM DESCRIPTION: U/S OB LIMITED COMPLETED DATE/TIME: 04/05/2018 4:35 pm REASON FOR STUDY: Need presentation and EFW/ROCIO COMPARISON: None. TECHNIQUE: Limited transvaginal grayscale ultrasound for evaluation of specific requested obstetrica l parameters. LIMITATIONS: None. FINDINGS: ROCIO: 11.3 cm. FHR: 139 beats per minute. PRESENTATION: Cephalic. PLACENTA: Anterior. ANATOMY: Not assessed OTHER: Estimated weight 2443 g. 47th percentile. IMPRESSION: LIMITED OBSTETRICAL ULTRASOUND WITH MEASURED PARAMETERS DELINEATED ABOVE. Trimester of : Third trimester - 28 weeks to delivery. TECHNICAL DOCUMENTATION: JOB ID: [id number] [employer]- All Rights Reserved Reading location - IP/workstation name: [email or web address]
[2018-04-06] MEDS: BUTALB/ACETAMINOPHEN/CAFFEINE 1 TAB EACH PO PRN ×2 (03:30→13:06)
[2018-04-06] MEDS: LANSOPRAZOLE 15 MG TAB.RAP.DR PO SCH (06:11)
[2018-04-06] MEDS ORDERED: ACETAMINOPHEN 325 MG TABLET PO ONE (07:00)
[2018-04-06] MEDS: INSULIN REG, HUMAN 100 UNIT/ML 3 ML VIAL (PYX) SUBCUT SCH ×3 (07:46→16:58)
[2018-04-06] MEDS: METFORMIN HCL 500 MG TABLET PO SCH ×2 (07:48→16:12)
[2018-04-06] MEDS: INSULIN NPH (ISOPHANE), HUMAN 100 UNIT/ML 3 ML SUBCUT SCH ×2 (07:49→21:31)
[2018-04-06] MEDS: ESCITALOPRAM OXALATE 10 MG TABLET PO SCH (09:19)
[2018-04-06] MEDS: DOCUSATE SODIUM 100 MG CAPSULE PO SCH ×2 (09:20→18:17)
[2018-04-06] MEDS: MAGNESIUM OXIDE 400 MG TABLET PO SCH (09:20)
[2018-04-06] MEDS ORDERED: FERROUS SULFATE 325 MG TABLET PO SCH (14:00)
--- NOTE | 2018-04-06 14:03 | PDOC PROGRESS REPORT ---
Subjective Progress Note for:: 04/06/18 Subjective:: Patient states that she feels good; patient reports a mild headache which is not new for her; patient denies vision changes. She reports good movement and denies cramping. She is ambulating and voiding without difficulty Reason For Visit: CHTN,SUPERIMPOSED PRE-ECLAMPSIA,IDDM Physical Exam - Physical Exam Vital Signs: Temp Pulse Resp BP Pulse Ox 98.6 F 102 H 16 131/86 H 98 04/06/18 11:26 04/06/18 11:26 04/06/18 11:26 04/06/18 11:26 04/06/18 11:26 Intake & Output 04/05/18 04/06/18 04/07/18 06:59 06:59 06:59 Intake Total 2145 2330 Output Total 500 Balance 2145 1830 Weight 110.6 kg 111.4 kg General appearance: PRESENT: no acute distress Respiratory exam: PRESENT: clear to auscultation donis Cardiovascular exam: PRESENT: RRR Extremities exam: ABSENT: calf tenderness, clubbing - PAS while in bed, full ROM , joint swelling, pedal edema, tenderness, +1 edema, +2 edema, other Neurological exam: PRESENT: other - Continues to have a mild headache Result Laboratory Results: 04/03/18 11:09 04/03/18 11:09 Impressions: Obstetrics Ultrasound 04/05/18 15:17 IMPRESSION: LIMITED OBSTETRICAL ULTRASOUND WITH MEASURED PARAMETERS DELINEATED ABOVE. Trimester of : Third trimester - 28 weeks to delivery. Assessment & Plan - Diagnosis (1) Chronic hypertension with superimposed pre-eclampsia Is this a current diagnosis for this admission?: Yes Plan: Continue to monitor blood pressures; use Procardia 30 mg XL x1; most blood pressures not in treatable range (2) Obesity Qualifiers: Body mass index: BMI 40.0-44.9 Is this a current diagnosis for this admission?: Yes Plan: Continue to control diet (3) and insulin-dependent diabetes mellitus in third trimester Is this a current diagnosis for this admission?: Yes Plan: Continue current insulin regimen--blood sugars within normal limits now (4) Gestational diabetes mellitus (GDM) in childbirth, insulin controlled Is this a current diagnosis for this admission?: Yes (5) Gestational hypertension Qualifiers: Trimester: third trimester Qualified Code(s): O13.3 - Gestational [ -induced] hypertension without significant proteinuria, third trimester Is this a current diagnosis for this admission?: Yes (6) Headache Qualifiers: Headache chronicity pattern: episodic headache Is this a current diagnosis for this admission?: Yes Plan: Continue Fioricet as needed and (1) daily caffeinated beverage--explained to patient that an increase beyond 1 daily a while beverage may create rebound headaches - Plan Summary Plan Summary: Plan: 1. Intrauterine at 34-5/7 weeks--continue daily NST 2. Patient may take home medication for GERD--patient stated the Prevacid ordered for her here does not work
[2018-04-06] MEDS ORDERED: ACETAMINOPHEN 325 MG TABLET ONE (16:10)
[2018-04-06] MEDS: ACETAMINOPHEN 325 MG TABLET PO PRN (21:32)
[2018-04-07] MEDS: LANSOPRAZOLE 15 MG TAB.RAP.DR PO SCH (05:49)
[2018-04-07] MEDS: INSULIN REG, HUMAN 100 UNIT/ML 3 ML VIAL (PYX) SUBCUT SCH ×3 (08:03→17:03)
[2018-04-07] MEDS: INSULIN NPH (ISOPHANE), HUMAN 100 UNIT/ML 3 ML SUBCUT SCH ×2 (08:04→21:40)
[2018-04-07] MEDS: METFORMIN HCL 500 MG TABLET PO SCH ×2 (08:05→16:19)
--- NOTE | 2018-04-07 08:49 | PDOC PROGRESS REPORT ---
Subjective Progress Note for:: 04/07/18 Subjective:: pt without complaints Reason For Visit: CHTN,SUPERIMPOSED PRE-ECLAMPSIA,IDDM Physical Exam - Physical Exam Vital Signs: Temp Pulse Resp BP Pulse Ox 98.2 F 100 18 133/77 H 99 04/07/18 03:28 04/07/18 03:28 04/07/18 03:28 04/07/18 03:28 04/07/18 03:28 Intake & Output 04/06/18 04/07/18 04/08/18 06:59 06:59 06:59 Intake Total 2330 400 Output Total 500 180 Balance 1830 220 Weight 111.4 kg 111 kg General appearance: PRESENT: no acute distress Respiratory exam: PRESENT: clear to auscultation donis Result Laboratory Results: 04/03/18 11:09 04/03/18 11:09 Impressions: Obstetrics Ultrasound 04/05/18 15:17 IMPRESSION: LIMITED OBSTETRICAL ULTRASOUND WITH MEASURED PARAMETERS DELINEATED ABOVE. Trimester of : Third trimester - 28 weeks to delivery. Assessment & Plan - Diagnosis (1) Chronic hypertension with superimposed pre-eclampsia Is this a current diagnosis for this admission?: Yes (2) Obesity Qualifiers: Body mass index: BMI 40.0-44.9 Is this a current diagnosis for this admission?: Yes (3) and insulin-dependent diabetes mellitus in third trimester Is this a current diagnosis for this admission?: Yes (4) Gestational diabetes mellitus (GDM) in childbirth, insulin controlled Is this a current diagnosis for this admission?: Yes (5) Gestational hypertension Qualifiers: Trimester: third trimester Qualified Code(s): O13.3 - Gestational [ -induced] hypertension without significant proteinuria, third trimester Is this a current diagnosis for this admission?: Yes - Plan Summary Plan Summary: pt doing well continue with present plan of management
[2018-04-07] MEDS: MAGNESIUM OXIDE 400 MG TABLET PO SCH (10:31)
[2018-04-07] MEDS: ESCITALOPRAM OXALATE 10 MG TABLET PO SCH (10:31)
[2018-04-07] MEDS: DOCUSATE SODIUM 100 MG CAPSULE PO SCH ×2 (10:31→17:20)
[2018-04-07] MEDS: ACETAMINOPHEN 325 MG TABLET PO PRN ×3 (10:31→22:58)
--- NOTE | 2018-04-07 18:22 | RADIOLOGY REPORT (SQ) ---
EXAM DESCRIPTION: U/S OB LIMITED COMPLETED DATE/TIME: 04/07/2018 6:12 pm REASON FOR STUDY: BLOOD WHEN WIPE AFTER URINATION COMPARISON: None. TECHNIQUE: Limited transabdominal grayscale ultrasound for evaluation of specific requested obstetri queenie parameters. LIMITATIONS: None. FINDINGS: CERVICAL LENGTH: 4.8 slight funneling. ROCIO: 9.5 cm. FHR: 139 beats per minute. PRESENTATION: Cephalic. PLACENTA: Not assessed ANATOMY: Not assessed OTHER: No other significant findings. IMPRESSION: LIMITED OBSTETRICAL ULTRASOUND WITH MEASURED PARAMETERS DELINEATED ABOVE. Trimester of : Third trimester - 28 weeks to delivery. TECHNICAL DOCUMENTATION: JOB ID: [id number] [employer]- All Rights Reserved Reading location - IP/workstation name: [email or web address]
[2018-04-08] MEDS: LANSOPRAZOLE 15 MG TAB.RAP.DR PO SCH (06:13)
[2018-04-08] MEDS: ACETAMINOPHEN 325 MG TABLET PO PRN ×2 (06:14→17:09)
[2018-04-08] MEDS: INSULIN NPH (ISOPHANE), HUMAN 100 UNIT/ML 3 ML SUBCUT SCH ×2 (08:35→20:21)
[2018-04-08] MEDS: INSULIN REG, HUMAN 100 UNIT/ML 3 ML VIAL (PYX) SUBCUT SCH ×3 (08:36→17:09)
[2018-04-08] MEDS: METFORMIN HCL 500 MG TABLET PO SCH ×2 (08:37→17:09)
[2018-04-08] MEDS: DOCUSATE SODIUM 100 MG CAPSULE PO SCH ×2 (10:49→17:09)
[2018-04-08] MEDS: ESCITALOPRAM OXALATE 10 MG TABLET PO SCH (10:49)
[2018-04-08] MEDS: MAGNESIUM OXIDE 400 MG TABLET PO SCH (10:58)
--- NOTE | 2018-04-08 11:11 | PDOC PROGRESS REPORT ---
Subjective Progress Note for:: 04/08/18 Subjective:: feeling well. no headache or blurry vision Reason For Visit: CHTN,SUPERIMPOSED PRE-ECLAMPSIA,IDDM Physical Exam - Physical Exam Vital Signs: Temp Pulse Resp BP Pulse Ox 97.5 F 95 18 139/82 H 97 04/08/18 06:58 04/08/18 06:58 04/08/18 06:58 04/08/18 06:58 04/08/18 06:58 Intake & Output 04/07/18 04/08/18 04/09/18 06:59 06:59 06:59 Intake Total 400 1600 Output Total 180 Balance 220 1600 Weight 111 kg 111 kg General appearance: PRESENT: no acute distress, cooperative GI/Abdominal exam: PRESENT: soft - gravid Result Laboratory Results: 04/03/18 11:09 04/03/18 11:09 04/05/18 16:58 Vaginal/Anorectal Group B Streptococcus Culture - Final GROUP B BETA HEMOLYTIC STREPTOCOCCUS RECOVERED Impressions: Obstetrics Ultrasound 04/07/18 00:00 IMPRESSION: LIMITED OBSTETRICAL ULTRASOUND WITH MEASURED PARAMETERS DELINEATED ABOVE. Trimester of : Third trimester - 28 weeks to delivery. Assessment & Plan - Diagnosis (1) Gestational diabetes mellitus (GDM) in childbirth, insulin controlled Is this a current diagnosis for this admission?: Yes (2) Gestational hypertension Qualifiers: Trimester: third trimester Qualified Code(s): O13.3 - Gestational [ -induced] hypertension without significant proteinuria, third trimester Is this a current diagnosis for this admission?: Yes (3) Headache Qualifiers: Headache chronicity pattern: episodic headache Is this a current diagnosis for this admission?: Yes - Inpatient Certification Based on my medical assessment, after consideration of the patient's comorbidities, presenting symptoms, or acuity I expect that the services needed warrant INPATIENT care.: Yes I certify that my determination is in accordance with my understanding of Medicare's requirements for reasonable and necessary INPATIENT services [42 CFR 412.3e].: Yes Medical Necessity: Need Close Monitoring Due to Risk of Patient Decompensation - Plan Summary Plan Summary: continue with close monitoring per [facility] recs and plan for delivery at 37 wks.
[2018-04-08] MEDS ORDERED: PROCHLORPERAZINE MALEATE 10 MG TABLET PO ONE (14:00)
[2018-04-08] MEDS: BUTALB/ACETAMINOPHEN/CAFFEINE 1 TAB EACH PO PRN (20:19)
[2018-04-09] MEDS: ACETAMINOPHEN 325 MG TABLET PO PRN ×2 (04:59→21:41)
[2018-04-09] MEDS: LANSOPRAZOLE 15 MG TAB.RAP.DR PO SCH (04:59)
[2018-04-09] MEDS ORDERED: PROMETHAZINE HCL INJ 25 MG/1 ML VIAL IV ONE (06:00)
[2018-04-09] MEDS ORDERED: NORMAL SALINE 1000 ML 1,000 ML IV ONE (06:00)
[2018-04-09 06:34] LABS: HEMATOCRIT 29.1 % (36.0-47.0); HEMOGLOBIN 9.5 g/dL (12.0-15.5); MEAN CORPUSCULAR HEMOGLOBIN 27.3 pg (27.0-33.4); MEAN CORPUSCULAR HGB CONC 32.7 g/dL (32.0-36.0); MEAN CORPUSCULAR VOLUME 83 fl (80-97); PLATELET COUNT 400 10^3/uL (150-450); RED BLOOD COUNT 3.49 10^6/uL (3.72-5.28); RED CELL DISTRIBUTION WIDTH 17.1 % (11.5-14.0); WHITE BLOOD COUNT 12.3 10^3/uL (4.0-10.5)
[2018-04-09 07:04] LABS: ALANINE AMINOTRANSFERASE 22 U/L (9-52); ALBUMIN 2.9 g/dL (3.5-5.0); ALKALINE PHOSPHATASE 163 U/L (38-126); ANION GAP 10 (5-19); ASPARTATE AMINO TRANSFERASE 30 U/L (14-36); BILIRUBIN,DIRECT 0.4 mg/dL (0.0-0.4); BILIRUBIN,TOTAL 0.5 mg/dL (0.2-1.3); BLOOD UREA NITROGEN 8 mg/dL (7-20); CARBON DIOXIDE 24 mmol/L (22-30); CHLORIDE 106 mmol/L (98-107); GLUCOSE 76 mg/dL (75-110); POTASSIUM 3.9 mmol/L (3.6-5.0); SODIUM 139.6 mmol/L (137-145); TOTAL PROTEIN 5.6 g/dL (6.3-8.2); URIC ACID 4.2 mg/dL (2.5-6.2)
[2018-04-09] MEDS: INSULIN NPH (ISOPHANE), HUMAN 100 UNIT/ML 3 ML SUBCUT SCH ×2 (07:51→21:42)
[2018-04-09] MEDS: INSULIN REG, HUMAN 100 UNIT/ML 3 ML VIAL (PYX) SUBCUT SCH ×3 (07:52→16:42)
[2018-04-09] MEDS: METFORMIN HCL 500 MG TABLET PO SCH ×2 (07:53→16:37)
--- NOTE | 2018-04-09 09:05 | PDOC PROGRESS REPORT ---
Subjective Progress Note for:: 04/09/18 Subjective:: pt states her MCFADDEN is better and has no complaints Reason For Visit: CHTN,SUPERIMPOSED PRE-ECLAMPSIA,IDDM Physical Exam - Physical Exam Vital Signs: Temp Pulse Resp BP Pulse Ox 98.6 F 100 26 H 146/97 H 97 04/09/18 04:01 04/09/18 06:46 04/09/18 04:01 04/09/18 06:46 04/09/18 06:46 Intake & Output 04/08/18 04/09/18 04/10/18 06:59 06:59 06:59 Intake Total 1600 550 Balance 1600 550 Weight 111 kg 114 kg General appearance: PRESENT: no acute distress GI/Abdominal exam: PRESENT: normal bowel sounds, soft Result Laboratory Results: 04/09/18 06:19 04/09/18 06:19 04/09/18 04/09/18 06:19 06:19 WBC 12.3 H RBC 3.49 L Hgb 9.5 L Hct 29.1 L MCV 83 MCH 27.3 MCHC 32.7 RDW 17.1 H Plt Count 400 Sodium 139.6 Potassium 3.9 Chloride 106 Carbon Dioxide 24 Anion Gap 10 BUN 8 Creatinine 0.38 L Est GFR ( Amer) > 60 Est GFR (Non-Af Amer) > 60 Glucose 76 Uric Acid 4.2 Calcium 9.0 Total Bilirubin 0.5 AST 30 ALT 22 Alkaline Phosphatase 163 H Total Protein 5.6 L Albumin 2.9 L 04/05/18 16:58 Vaginal/Anorectal Group B Streptococcus Culture - Final GROUP B BETA HEMOLYTIC STREPTOCOCCUS RECOVERED Impressions: Obstetrics Ultrasound 04/07/18 00:00 IMPRESSION: LIMITED OBSTETRICAL ULTRASOUND WITH MEASURED PARAMETERS DELINEATED ABOVE. Trimester of : Third trimester - 28 weeks to delivery. Assessment & Plan - Diagnosis (1) Chronic hypertension with superimposed pre-eclampsia Is this a current diagnosis for this admission?: Yes (2) Obesity Qualifiers: Body mass index: BMI 40.0-44.9 Is this a current diagnosis for this admission?: Yes (3) and insulin-dependent diabetes mellitus in third trimester Is this a current diagnosis for this admission?: Yes (4) Gestational diabetes mellitus (GDM) in childbirth, insulin controlled Is this a current diagnosis for this admission?: Yes (5) Gestational hypertension Qualifiers: Trimester: third trimester Qualified Code(s): O13.3 - Gestational [ -induced] hypertension without significant proteinuria, third trimester Is this a current diagnosis for this admission?: Yes - Plan Summary Plan Summary: continue with present plan of management
[2018-04-09] MEDS: DOCUSATE SODIUM 100 MG CAPSULE PO SCH ×2 (09:58→17:42)
[2018-04-09] MEDS: MAGNESIUM OXIDE 400 MG TABLET PO SCH (09:58)
[2018-04-09] MEDS: ESCITALOPRAM OXALATE 10 MG TABLET PO SCH (09:58)
[2018-04-10] MEDS: ACETAMINOPHEN 325 MG TABLET PO PRN (06:14)
[2018-04-10] MEDS: LANSOPRAZOLE 15 MG TAB.RAP.DR PO SCH (06:14)
[2018-04-10] MEDS: METFORMIN HCL 500 MG TABLET PO SCH ×2 (08:02→16:54)
[2018-04-10] MEDS: INSULIN REG, HUMAN 100 UNIT/ML 3 ML VIAL (PYX) SUBCUT SCH ×3 (08:14→16:54)
[2018-04-10] MEDS: INSULIN NPH (ISOPHANE), HUMAN 100 UNIT/ML 3 ML SUBCUT SCH ×2 (08:15→21:54)
[2018-04-10] MEDS: MAGNESIUM OXIDE 400 MG TABLET PO SCH (09:03)
[2018-04-10] MEDS: DOCUSATE SODIUM 100 MG CAPSULE PO SCH ×2 (09:04→17:40)
[2018-04-10] MEDS: ESCITALOPRAM OXALATE 10 MG TABLET PO SCH (09:04)
--- NOTE | 2018-04-10 10:32 | PDOC PROGRESS REPORT ---
Subjective Progress Note for:: 04/10/18 Subjective:: feeling well. no headache or blurry vision Reason For Visit: CHTN,SUPERIMPOSED PRE-ECLAMPSIA,IDDM Physical Exam - Physical Exam Vital Signs: Temp Pulse Resp BP Pulse Ox 97.6 F 101 H 20 143/98 H 96 04/10/18 07:36 04/10/18 07:36 04/10/18 07:36 04/10/18 07:36 04/10/18 07:36 Intake & Output 04/09/18 04/10/18 04/11/18 06:59 06:59 06:59 Intake Total 550 1172 Balance 550 1172 Weight 114 kg 112 kg General appearance: PRESENT: no acute distress, cooperative GI/Abdominal exam: PRESENT: soft - obese gravid Result Laboratory Results: 04/09/18 06:19 04/09/18 06:19 Impressions: Obstetrics Ultrasound 04/07/18 00:00 IMPRESSION: LIMITED OBSTETRICAL ULTRASOUND WITH MEASURED PARAMETERS DELINEATED ABOVE. Trimester of : Third trimester - 28 weeks to delivery. Assessment & Plan - Diagnosis (1) Gestational diabetes mellitus (GDM) in childbirth, insulin controlled Is this a current diagnosis for this admission?: Yes (2) Gestational hypertension Qualifiers: Trimester: third trimester Qualified Code(s): O13.3 - Gestational [ -induced] hypertension without significant proteinuria, third trimester Is this a current diagnosis for this admission?: Yes (3) Headache Qualifiers: Headache chronicity pattern: episodic headache Is this a current diagnosis for this admission?: Yes - Plan Summary Plan Summary: patient indicates the Phenergan did give her relief of her headache yesterday for > 12 hours. Will repeat today. Closely monitor for decline. Continue with plan for delivery at approx 37 wks (around 04/24) per [facility] recommendations unless condition worsens necessitating earlier delivery. Repeat PreE labs q weekly to monitor LFTs/Uric Acid/Creat/platelets
[2018-04-10] MEDS: BUTALB/ACETAMINOPHEN/CAFFEINE 1 TAB EACH PO PRN ×2 (14:44→21:52)
[2018-04-10] MEDS: PROMETHAZINE HCL INJ 25 MG/1 ML VIAL IV PRN (15:21)
[2018-04-10] MEDS ORDERED: RINGERS SOLUTION,LACTATED 500 ML IV PRN (15:33)
[2018-04-10 16:17] LABS: HEMATOCRIT 28.3 % (36.0-47.0); HEMOGLOBIN 9.4 g/dL (12.0-15.5); MEAN CORPUSCULAR HGB CONC 33.3 g/dL (32.0-36.0); MEAN CORPUSCULAR VOLUME 84 fl (80-97); PLATELET COUNT 394 10^3/uL (150-450); RED BLOOD COUNT 3.37 10^6/uL (3.72-5.28); RED CELL DISTRIBUTION WIDTH 16.7 % (11.5-14.0); WHITE BLOOD COUNT 11.6 10^3/uL (4.0-10.5)
[2018-04-10 16:45] LABS: ALANINE AMINOTRANSFERASE 20 U/L (9-52); ALBUMIN 2.9 g/dL (3.5-5.0); ALKALINE PHOSPHATASE 170 U/L (38-126); ANION GAP 12 (5-19); ASPARTATE AMINO TRANSFERASE 25 U/L (14-36); BILIRUBIN,DIRECT 0.3 mg/dL (0.0-0.4); BILIRUBIN,TOTAL 0.3 mg/dL (0.2-1.3); BLOOD UREA NITROGEN 7 mg/dL (7-20); CALCIUM 9.1 mg/dL (8.4-10.2); CARBON DIOXIDE 21 mmol/L (22-30); CHLORIDE 106 mmol/L (98-107); GLUCOSE 69 mg/dL (75-110); POTASSIUM 3.8 mmol/L (3.6-5.0); SODIUM 139.2 mmol/L (137-145); TOTAL PROTEIN 5.6 g/dL (6.3-8.2); URIC ACID 4.1 mg/dL (2.5-6.2)
[2018-04-10] MEDS: RINGERS SOLUTION,LACTATED 1,000 ML IV PRN (17:43)
[2018-04-11] MEDS: PROMETHAZINE HCL INJ 25 MG/1 ML VIAL IV PRN (00:18)
[2018-04-11] MEDS: LANSOPRAZOLE 15 MG TAB.RAP.DR PO SCH (06:12)
[2018-04-11] MEDS: RINGERS SOLUTION,LACTATED 1,000 ML IV PRN ×2 (06:12→20:39)
[2018-04-11] MEDS ORDERED: FERRIC CARBOXYMALTOSE INJ 750 MG/15 ML VIAL IV SCH (06:45)
[2018-04-11] MEDS ORDERED: FERRIC CARBOXYMALTOSE 750 MG in NORMAL SALINE 250 ML IV ONE ×2 (06:45→09:00)
[2018-04-11] MEDS: INSULIN REG, HUMAN 100 UNIT/ML 3 ML VIAL (PYX) SUBCUT SCH ×3 (08:02→17:22)
[2018-04-11] MEDS: METFORMIN HCL 500 MG TABLET PO SCH ×2 (08:03→17:22)
[2018-04-11] MEDS: INSULIN NPH (ISOPHANE), HUMAN 100 UNIT/ML 3 ML SUBCUT SCH ×2 (08:03→20:37)
--- NOTE | 2018-04-11 08:39 | PDOC PROGRESS REPORT ---
Subjective Progress Note for:: 04/11/18 Subjective:: pt states she is doing well Reason For Visit: CHTN,SUPERIMPOSED PRE-ECLAMPSIA,IDDM Physical Exam - Physical Exam Vital Signs: Temp Pulse Resp BP Pulse Ox 97.7 F 106 H 18 138/80 H 98 04/11/18 07:43 04/11/18 07:43 04/11/18 07:43 04/11/18 07:43 04/11/18 07:43 Intake & Output 04/10/18 04/11/18 04/12/18 06:59 06:59 06:59 Intake Total 1172 2680 Balance 1172 2680 Weight 112 kg 116 kg General appearance: PRESENT: no acute distress Respiratory exam: PRESENT: clear to auscultation donis Extremities exam: PRESENT: other - no edema Result Laboratory Results: 04/10/18 15:40 04/10/18 15:40 04/10/18 04/10/18 15:40 15:40 WBC 11.6 H RBC 3.37 L Hgb 9.4 L Hct 28.3 L MCV 84 MCH 28.0 MCHC 33.3 RDW 16.7 H Plt Count 394 Sodium 139.2 Potassium 3.8 Chloride 106 Carbon Dioxide 21 L Anion Gap 12 BUN 7 Creatinine 0.35 L Est GFR ( Amer) > 60 Est GFR (Non-Af Amer) > 60 Glucose 69 L Uric Acid 4.1 Calcium 9.1 Total Bilirubin 0.3 AST 25 ALT 20 Alkaline Phosphatase 170 H Total Protein 5.6 L Albumin 2.9 L Impressions: Obstetrics Ultrasound 04/07/18 00:00 IMPRESSION: LIMITED OBSTETRICAL ULTRASOUND WITH MEASURED PARAMETERS DELINEATED ABOVE. Trimester of : Third trimester - 28 weeks to delivery. Assessment & Plan - Diagnosis (1) Chronic hypertension with superimposed pre-eclampsia Is this a current diagnosis for this admission?: Yes (2) Obesity Qualifiers: Body mass index: BMI 40.0-44.9 Is this a current diagnosis for this admission?: Yes (3) and insulin-dependent diabetes mellitus in third trimester Is this a current diagnosis for this admission?: Yes (4) Gestational diabetes mellitus (GDM) in childbirth, insulin controlled Is this a current diagnosis for this admission?: Yes (5) Gestational hypertension Qualifiers: Trimester: third trimester Qualified Code(s): O13.3 - Gestational [ -induced] hypertension without significant proteinuria, third trimester Is this a current diagnosis for this admission?: Yes - Plan Summary Plan Summary: continue with present plan of management
[2018-04-11] MEDS: BUTALB/ACETAMINOPHEN/CAFFEINE 1 TAB EACH PO PRN ×2 (08:47→18:10)
[2018-04-11] MEDS: ESCITALOPRAM OXALATE 10 MG TABLET PO SCH (10:27)
[2018-04-11] MEDS: DOCUSATE SODIUM 100 MG CAPSULE PO SCH ×2 (10:27→17:22)
[2018-04-11] MEDS: MAGNESIUM OXIDE 400 MG TABLET PO SCH (10:27)
[2018-04-12] MEDS ORDERED: BUTALB/ACETAMINOPHEN/CAFFEINE 1 TAB EACH ONE ×2 (01:37→23:33)
[2018-04-12] MEDS: BUTALB/ACETAMINOPHEN/CAFFEINE 1 TAB EACH PO PRN ×4 (01:43→23:35)
[2018-04-12] MEDS: RINGERS SOLUTION,LACTATED 1,000 ML IV PRN (04:58)
[2018-04-12] MEDS: LANSOPRAZOLE 15 MG TAB.RAP.DR PO SCH (04:59)
[2018-04-12] MEDS: METFORMIN HCL 500 MG TABLET PO SCH ×2 (08:38→17:15)
[2018-04-12] MEDS: INSULIN NPH (ISOPHANE), HUMAN 100 UNIT/ML 3 ML SUBCUT SCH ×2 (08:39→20:47)
[2018-04-12] MEDS: INSULIN REG, HUMAN 100 UNIT/ML 3 ML VIAL (PYX) SUBCUT SCH ×3 (08:39→17:38)
[2018-04-12] MEDS: MAGNESIUM OXIDE 400 MG TABLET PO SCH (10:36)
[2018-04-12] MEDS: DOCUSATE SODIUM 100 MG CAPSULE PO SCH ×2 (10:36→17:15)
[2018-04-12] MEDS: ESCITALOPRAM OXALATE 10 MG TABLET PO SCH (10:36)
--- NOTE | 2018-04-12 11:20 | PDOC PROGRESS REPORT ---
Subjective Progress Note for:: 04/12/18 Subjective:: Patient states that she feels good; unchanged headache; patient denies chest pain, shortness of breath, fever/chills or nausea/vomiting. She is ambulating voiding difficulty. Patient reports good movement and denies cramping or contractions Reason For Visit: CHTN,SUPERIMPOSED PRE-ECLAMPSIA,IDDM Physical Exam - Physical Exam Vital Signs: Temp Pulse Resp BP Pulse Ox 98.5 F 104 H 18 125/73 98 04/12/18 07:46 04/12/18 07:46 04/12/18 07:46 04/12/18 07:46 04/12/18 07:46 Intake & Output 04/11/18 04/12/18 04/13/18 06:59 06:59 06:59 Intake Total 2680 3800 Balance 2680 3800 Weight 116 kg 116.7 kg General appearance: PRESENT: no acute distress Respiratory exam: PRESENT: clear to auscultation donis Cardiovascular exam: PRESENT: RRR GI/Abdominal exam: PRESENT: normal bowel sounds, soft Extremities exam: PRESENT: pedal edema, +1 edema Neurological exam: PRESENT: other - Intermittent headache Result Laboratory Results: 04/10/18 15:40 04/10/18 15:40 Impressions: Obstetrics Ultrasound 04/07/18 00:00 IMPRESSION: LIMITED OBSTETRICAL ULTRASOUND WITH MEASURED PARAMETERS DELINEATED ABOVE. Trimester of : Third trimester - 28 weeks to delivery. Assessment & Plan - Diagnosis (1) Chronic hypertension with superimposed pre-eclampsia Is this a current diagnosis for this admission?: Yes (2) Obesity Qualifiers: Body mass index: BMI 40.0-44.9 Is this a current diagnosis for this admission?: Yes (3) and insulin-dependent diabetes mellitus in third trimester Is this a current diagnosis for this admission?: Yes (4) Gestational diabetes mellitus (GDM) in childbirth, insulin controlled Is this a current diagnosis for this admission?: Yes (5) Gestational hypertension Qualifiers: Trimester: third trimester Qualified Code(s): O13.3 - Gestational [ -induced] hypertension without significant proteinuria, third trimester Is this a current diagnosis for this admission?: Yes (6) Headache Qualifiers: Headache chronicity pattern: episodic headache Is this a current diagnosis for this admission?: Yes - Plan Summary Plan Summary: Plan: 1. Preeclampsia--continue current medication regimen 2. Discontinue IV fluids--Hep-Lock IV
--- NOTE | 2018-04-12 22:53 | PDOC PROGRESS REPORT ---
Subjective Progress Note for:: 04/12/18 Subjective:: Pt stated that she was having a chest pain that radiated into her back. She was undergoing her NST. She stated that it was difficult to take a breath. Reason For Visit: CHTN,SUPERIMPOSED PRE-ECLAMPSIA,IDDM Physical Exam - Physical Exam Vital Signs: Temp Pulse Resp BP Pulse Ox 98.5 F 100 16 123/85 95 04/12/18 20:00 04/12/18 20:00 04/12/18 20:00 04/12/18 20:00 04/12/18 20:00 Intake & Output 04/11/18 04/12/18 04/13/18 06:59 06:59 06:59 Intake Total 2680 3800 1140 Balance 2680 3800 1140 Weight 116 kg 116.7 kg General appearance: PRESENT: no acute distress, other - I was present when she had her blood drawn and she was calm and in no apparent distress Respiratory exam: PRESENT: clear to auscultation donis Cardiovascular exam: PRESENT: RRR Musculoskeletal exam: PRESENT: other - Chest pain reproduced on palpation Result Laboratory Results: 04/10/18 15:40 04/10/18 15:40 Impressions: Obstetrics Ultrasound 04/07/18 00:00 IMPRESSION: LIMITED OBSTETRICAL ULTRASOUND WITH MEASURED PARAMETERS DELINEATED ABOVE. Trimester of : Third trimester - 28 weeks to delivery. Assessment & Plan - Diagnosis (1) Chronic hypertension with superimposed pre-eclampsia Is this a current diagnosis for this admission?: Yes (2) Obesity Qualifiers: Body mass index: BMI 40.0-44.9 Is this a current diagnosis for this admission?: Yes (3) and insulin-dependent diabetes mellitus in third trimester Is this a current diagnosis for this admission?: Yes (4) Gestational diabetes mellitus (GDM) in childbirth, insulin controlled Is this a current diagnosis for this admission?: Yes (5) Gestational hypertension Qualifiers: Trimester: third trimester Qualified Code(s): O13.3 - Gestational [ -induced] hypertension without significant proteinuria, third trimester Is this a current diagnosis for this admission?: Yes (6) Headache Qualifiers: Headache chronicity pattern: episodic headache Is this a current diagnosis for this admission?: Yes - Plan Summary Plan Summary: Plan: 1. D dimer--slightly elevated 2. EKG--normal 3. Spiral CT not ordered even though order was relayed to nurse 4. Pt laughing and interacting with family members, in no distress 5. Will place ANGIE fernandez on pt since she does not like to ambulate often
[2018-04-13] MEDS: LANSOPRAZOLE 15 MG TAB.RAP.DR PO SCH (06:37)
[2018-04-13] MEDS ORDERED: BUTALB/ACETAMINOPHEN/CAFFEINE 1 TAB EACH ONE (07:25)
[2018-04-13] MEDS: BUTALB/ACETAMINOPHEN/CAFFEINE 1 TAB EACH PO PRN ×2 (07:29→14:44)
--- NOTE | 2018-04-13 08:52 | PDOC PROGRESS REPORT ---
Subjective Progress Note for:: 04/13/18 Subjective:: She is doing well today. States her induction is planned for Apr 24. Reason For Visit: CHTN,SUPERIMPOSED PRE-ECLAMPSIA,IDDM Physical Exam - Physical Exam Vital Signs: Temp Pulse Resp BP Pulse Ox 98.1 F 99 18 134/86 H 99 04/13/18 08:14 04/13/18 08:14 04/13/18 08:14 04/13/18 08:14 04/13/18 08:14 Intake & Output 04/12/18 04/13/18 04/14/18 06:59 06:59 06:59 Intake Total 3800 1490 1000 Balance 3800 1490 1000 Weight 116.7 kg 116.7 kg General appearance: PRESENT: no acute distress Result Laboratory Results: 04/10/18 15:40 04/10/18 15:40 Heartbeat/NST: daily nst Impressions: Obstetrics Ultrasound 04/07/18 00:00 IMPRESSION: LIMITED OBSTETRICAL ULTRASOUND WITH MEASURED PARAMETERS DELINEATED ABOVE. Trimester of : Third trimester - 28 weeks to delivery. Assessment & Plan - Diagnosis (1) Chronic hypertension with superimposed pre-eclampsia Is this a current diagnosis for this admission?: Yes (2) and insulin-dependent diabetes mellitus in third trimester Is this a current diagnosis for this admission?: Yes - Time Time Spent with patient: 15-24 minutes Within: Other - Plan Summary Plan Summary: Plan is delivery at 37 weeks. This is about Apr 24.
[2018-04-13] MEDS: INSULIN REG, HUMAN 100 UNIT/ML 3 ML VIAL (PYX) SUBCUT SCH ×3 (09:13→16:52)
[2018-04-13] MEDS: INSULIN NPH (ISOPHANE), HUMAN 100 UNIT/ML 3 ML SUBCUT SCH ×2 (09:13→21:09)
[2018-04-13] MEDS: ESCITALOPRAM OXALATE 10 MG TABLET PO SCH (09:15)
[2018-04-13] MEDS: DOCUSATE SODIUM 100 MG CAPSULE PO SCH ×2 (09:15→18:11)
[2018-04-13] MEDS: MAGNESIUM OXIDE 400 MG TABLET PO SCH (09:15)
[2018-04-13] MEDS: METFORMIN HCL 500 MG TABLET PO SCH ×2 (09:15→16:51)
--- NOTE | 2018-04-13 09:38 | EKG REPORT ---
SEVERITY:- OTHERWISE NORMAL ECG - SINUS TACHYCARDIA : Confirmed by: Abi Lobo MD 13-Apr-2018 09:37:47
[2018-04-13] MEDS: FERROUS SULFATE 325 MG TABLET PO SCH (10:32)
[2018-04-14] MEDS: BUTALB/ACETAMINOPHEN/CAFFEINE 1 TAB EACH PO PRN ×3 (00:45→17:22)
[2018-04-14] MEDS: LANSOPRAZOLE 15 MG TAB.RAP.DR PO SCH (05:25)
[2018-04-14] MEDS: INSULIN REG, HUMAN 100 UNIT/ML 3 ML VIAL (PYX) SUBCUT SCH ×3 (08:01→17:22)
[2018-04-14] MEDS: INSULIN NPH (ISOPHANE), HUMAN 100 UNIT/ML 3 ML SUBCUT SCH ×2 (08:01→21:38)
[2018-04-14] MEDS: METFORMIN HCL 500 MG TABLET PO SCH ×2 (08:01→17:22)
[2018-04-14] MEDS ORDERED: BUTALB/ACETAMINOPHEN/CAFFEINE 1 TAB EACH ONE (08:18)
--- NOTE | 2018-04-14 09:03 | PDOC PROGRESS REPORT ---
Subjective Progress Note for:: 04/14/18 Subjective:: Patient states that she feels good; patient denies chest pain, shortness of breath, fever/chills and nausea/vomiting. She stated that her chest pain on inspiration has resolved. She reports good movement and has no complaints of contractions. Patient had many questions about cervical ripening Reason For Visit: CHTN,SUPERIMPOSED PRE-ECLAMPSIA,IDDM Physical Exam - Physical Exam Vital Signs: Temp Pulse Resp BP Pulse Ox 98.3 F 102 H 18 145/85 H 98 04/14/18 07:52 04/14/18 07:52 04/14/18 07:52 04/14/18 07:52 04/14/18 07:52 Intake & Output 04/13/18 04/14/18 04/15/18 06:59 06:59 06:59 Intake Total 1490 2120 Balance 1490 2120 Weight 116.7 kg 116.5 kg General appearance: PRESENT: no acute distress Respiratory exam: PRESENT: clear to auscultation donis Cardiovascular exam: PRESENT: RRR GI/Abdominal exam: PRESENT: normal bowel sounds, soft Extremities exam: ABSENT: calf tenderness, clubbing, full ROM, joint swelling, pedal edema, tenderness, +1 edema, +2 edema, other Result Laboratory Results: 04/10/18 15:40 04/10/18 15:40 Impressions: Obstetrics Ultrasound 04/07/18 00:00 IMPRESSION: LIMITED OBSTETRICAL ULTRASOUND WITH MEASURED PARAMETERS DELINEATED ABOVE. Trimester of : Third trimester - 28 weeks to delivery. Assessment & Plan - Diagnosis (1) Chronic hypertension with superimposed pre-eclampsia Is this a current diagnosis for this admission?: Yes (2) Obesity Qualifiers: Body mass index: BMI 40.0-44.9 Is this a current diagnosis for this admission?: Yes (3) and insulin-dependent diabetes mellitus in third trimester Is this a current diagnosis for this admission?: Yes (4) Gestational diabetes mellitus (GDM) in childbirth, insulin controlled Is this a current diagnosis for this admission?: Yes (5) Gestational hypertension Qualifiers: Trimester: third trimester Qualified Code(s): O13.3 - Gestational [ -induced] hypertension without significant proteinuria, third trimester Is this a current diagnosis for this admission?: Yes (6) Headache Qualifiers: Headache chronicity pattern: episodic headache Is this a current diagnosis for this admission?: Yes - Time Time Spent with patient: 15-24 minutes - Plan Summary Plan Summary: Plan: 1. Continue current medication regimen 2. Questions answered about cervical ripening
[2018-04-14] MEDS: ESCITALOPRAM OXALATE 10 MG TABLET PO SCH (09:53)
[2018-04-14] MEDS: FERROUS SULFATE 325 MG TABLET PO SCH (09:53)
[2018-04-14] MEDS: MAGNESIUM OXIDE 400 MG TABLET PO SCH (09:53)
[2018-04-14] MEDS: DOCUSATE SODIUM 100 MG CAPSULE PO SCH ×2 (09:53→17:21)
[2018-04-15] MEDS: LANSOPRAZOLE 15 MG TAB.RAP.DR PO SCH (06:15)
[2018-04-15] MEDS: METFORMIN HCL 500 MG TABLET PO SCH ×2 (08:44→16:46)
[2018-04-15] MEDS: INSULIN REG, HUMAN 100 UNIT/ML 3 ML VIAL (PYX) SUBCUT SCH ×3 (08:45→17:34)
[2018-04-15] MEDS: INSULIN NPH (ISOPHANE), HUMAN 100 UNIT/ML 3 ML SUBCUT SCH ×2 (08:45→22:17)
[2018-04-15] MEDS: BUTALB/ACETAMINOPHEN/CAFFEINE 1 TAB EACH PO PRN ×2 (08:49→16:46)
[2018-04-15] MEDS: ACETAMINOPHEN 325 MG TABLET PO PRN ×2 (09:41→16:46)
[2018-04-15] MEDS: MAGNESIUM OXIDE 400 MG TABLET PO SCH (09:41)
[2018-04-15] MEDS: FERROUS SULFATE 325 MG TABLET PO SCH (09:41)
[2018-04-15] MEDS: ESCITALOPRAM OXALATE 10 MG TABLET PO SCH (09:42)
[2018-04-15] MEDS: DOCUSATE SODIUM 100 MG CAPSULE PO SCH ×2 (09:42→17:35)
--- NOTE | 2018-04-15 10:11 | PDOC PROGRESS REPORT ---
Subjective Progress Note for:: 04/15/18 Subjective:: Doing well Reason For Visit: CHTN,SUPERIMPOSED PRE-ECLAMPSIA,IDDM Physical Exam - Physical Exam Vital Signs: Temp Pulse Resp BP Pulse Ox 98.1 F 103 H 18 139/76 H 98 04/15/18 06:12 04/15/18 06:12 04/15/18 06:12 04/15/18 06:12 04/15/18 06:12 Intake & Output 04/14/18 04/15/18 04/16/18 06:59 06:59 06:59 Intake Total 2120 Balance 2120 Weight 116.5 kg 114.3 kg General appearance: PRESENT: no acute distress, well-developed, well-nourished Result Laboratory Results: 04/10/18 15:40 04/10/18 15:40 Impressions: Obstetrics Ultrasound 04/07/18 00:00 IMPRESSION: LIMITED OBSTETRICAL ULTRASOUND WITH MEASURED PARAMETERS DELINEATED ABOVE. Trimester of : Third trimester - 28 weeks to delivery. Assessment & Plan - Diagnosis (1) Chronic hypertension with superimposed pre-eclampsia Is this a current diagnosis for this admission?: Yes (2) and insulin-dependent diabetes mellitus in third trimester Is this a current diagnosis for this admission?: Yes - Time Time Spent with patient: Less than 15 minutes - Plan Summary Plan Summary: No changes
[2018-04-16] MEDS: ACETAMINOPHEN 325 MG TABLET PO PRN ×2 (00:12→10:08)
[2018-04-16] MEDS: BUTALB/ACETAMINOPHEN/CAFFEINE 1 TAB EACH PO PRN ×2 (00:12→10:08)
[2018-04-16] MEDS: LANSOPRAZOLE 15 MG TAB.RAP.DR PO SCH (05:34)
[2018-04-16] MEDS: METFORMIN HCL 500 MG TABLET PO SCH ×2 (07:49→16:01)
[2018-04-16] MEDS: INSULIN NPH (ISOPHANE), HUMAN 100 UNIT/ML 3 ML SUBCUT SCH ×2 (07:51→21:51)
[2018-04-16] MEDS: INSULIN REG, HUMAN 100 UNIT/ML 3 ML VIAL (PYX) SUBCUT SCH ×3 (07:51→17:35)
--- NOTE | 2018-04-16 09:00 | PDOC PROGRESS REPORT ---
Subjective Progress Note for:: 04/16/18 Subjective:: Patient states that she feels good; she reports good movement and no contractions. Patient denies chest pain, shortness of breath, fever/chills or nausea/vomiting. Blood sugars within normal limits except yesterday. Patient admitted that her brought her food from home. Reason For Visit: CHTN,SUPERIMPOSED PRE-ECLAMPSIA,IDDM Physical Exam - Physical Exam Vital Signs: Temp Pulse Resp BP Pulse Ox 98.3 F 100 18 137/87 H 98 04/16/18 08:17 04/16/18 08:17 04/16/18 08:17 04/16/18 08:17 04/16/18 08:17 Intake & Output 04/15/18 04/16/18 04/17/18 06:59 06:59 06:59 Intake Total 500 Output Total 450 Balance 50 Weight 114.3 kg 115.8 kg General appearance: PRESENT: no acute distress Respiratory exam: PRESENT: clear to auscultation donis Cardiovascular exam: PRESENT: RRR GI/Abdominal exam: PRESENT: normal bowel sounds, soft Extremities exam: PRESENT: +1 edema Result Laboratory Results: 04/10/18 15:40 04/10/18 15:40 Impressions: Obstetrics Ultrasound 04/07/18 00:00 IMPRESSION: LIMITED OBSTETRICAL ULTRASOUND WITH MEASURED PARAMETERS DELINEATED ABOVE. Trimester of : Third trimester - 28 weeks to delivery. Assessment & Plan - Diagnosis (1) Chronic hypertension with superimposed pre-eclampsia Is this a current diagnosis for this admission?: Yes (2) Obesity Qualifiers: Body mass index: BMI 40.0-44.9 Is this a current diagnosis for this admission?: Yes (3) and insulin-dependent diabetes mellitus in third trimester Is this a current diagnosis for this admission?: Yes (4) Gestational diabetes mellitus (GDM) in childbirth, insulin controlled Is this a current diagnosis for this admission?: Yes (5) Gestational hypertension Qualifiers: Trimester: third trimester Qualified Code(s): O13.3 - Gestational [ -induced] hypertension without significant proteinuria, third trimester Is this a current diagnosis for this admission?: Yes (6) Headache Qualifiers: Headache chronicity pattern: episodic headache Is this a current diagnosis for this admission?: Yes - Plan Summary Plan Summary: Plan: 1. Continue current medication regimen 2. Continue to monitor blood sugars--only 1 elevated value in the past week- patient states that her brought her food from home 3. Lower extremity edema--check the patient to put ANGIE hose back on, intermittently
[2018-04-16] MEDS: DOCUSATE SODIUM 100 MG CAPSULE PO SCH ×2 (10:07→17:34)
[2018-04-16] MEDS: ESCITALOPRAM OXALATE 10 MG TABLET PO SCH (10:07)
[2018-04-16] MEDS: FERROUS SULFATE 325 MG TABLET PO SCH (10:07)
[2018-04-16] MEDS: MAGNESIUM OXIDE 400 MG TABLET PO SCH (10:07)
[2018-04-17] MEDS ORDERED: BUTALB/ACETAMINOPHEN/CAFFEINE 1 TAB EACH ONE (04:21)
[2018-04-17] MEDS: BUTALB/ACETAMINOPHEN/CAFFEINE 1 TAB EACH PO PRN ×2 (04:27→20:06)
[2018-04-17] MEDS: LANSOPRAZOLE 15 MG TAB.RAP.DR PO SCH (05:08)
[2018-04-17 07:38] LABS: ABSOLUTE EOSINOPHILS # (AUTO) 0.1 10^3/uL (0.0-0.6); ABSOLUTE MONOCYTES (AUTO) 0.5 10^3/uL (0.1-1.4); ABSOLUTE NEUT (AUTO) 8.5 10^3/uL (1.7-8.2); BASOPHILS % (AUTO) 0.1 % (0-2); EOSINOPHILS % (AUTO) 0.6 % (0-6); HEMATOCRIT 30.7 % (36.0-47.0); LYMPHOCYTES % (AUTO) 18.1 % (13-45); MEAN CORPUSCULAR HEMOGLOBIN 28.4 pg (27.0-33.4); MEAN CORPUSCULAR HGB CONC 32.6 g/dL (32.0-36.0); MEAN CORPUSCULAR VOLUME 87 fl (80-97); MONOCYTES % (AUTO) 4.2 % (3-13); PLATELET COUNT 337 10^3/uL (150-450); RED BLOOD COUNT 3.52 10^6/uL (3.72-5.28); RED CELL DISTRIBUTION WIDTH 20.4 % (11.5-14.0); TOTAL CELLS COUNTED % (AUTO) 100 %; WHITE BLOOD COUNT 11.1 10^3/uL (4.0-10.5)
[2018-04-17] MEDS: INSULIN NPH (ISOPHANE), HUMAN 100 UNIT/ML 3 ML SUBCUT SCH ×2 (08:48→21:45)
[2018-04-17] MEDS: INSULIN REG, HUMAN 100 UNIT/ML 3 ML VIAL (PYX) SUBCUT SCH ×3 (08:48→17:07)
[2018-04-17] MEDS: METFORMIN HCL 500 MG TABLET PO SCH ×2 (08:49→17:07)
[2018-04-17] MEDS: FERROUS SULFATE 325 MG TABLET PO SCH (10:45)
[2018-04-17] MEDS: ESCITALOPRAM OXALATE 10 MG TABLET PO SCH (10:45)
[2018-04-17] MEDS: MAGNESIUM OXIDE 400 MG TABLET PO SCH (10:45)
[2018-04-17] MEDS: DOCUSATE SODIUM 100 MG CAPSULE PO SCH ×2 (10:45→17:07)
--- NOTE | 2018-04-17 14:43 | PDOC PROGRESS REPORT ---
Subjective Progress Note for:: 04/17/18 Subjective:: feeling well. no headache or blurry vision. feeling better than previous. MCFADDEN gets relieved with Fioricet Reason For Visit: CHTN,SUPERIMPOSED PRE-ECLAMPSIA,IDDM Physical Exam - Physical Exam Vital Signs: Temp Pulse Resp BP Pulse Ox 98.2 F 97 20 139/93 H 97 04/17/18 11:37 04/17/18 11:37 04/17/18 11:37 04/17/18 11:37 04/17/18 11:37 Intake & Output 04/16/18 04/17/18 04/18/18 06:59 06:59 06:59 Intake Total 500 1492 Output Total 450 3 Balance 50 1489 Weight 115.8 kg 115.5 kg General appearance: PRESENT: no acute distress, cooperative, obese GI/Abdominal exam: PRESENT: soft - gravid Result Laboratory Results: 04/17/18 07:16 04/10/18 15:40 04/17/18 04/17/18 07:16 07:16 WBC 11.1 H RBC 3.52 L Hgb 10.0 L Hct 30.7 L MCV 87 MCH 28.4 MCHC 32.6 RDW 20.4 H Plt Count 337 Seg Neutrophils % 77.0 Lymphocytes % 18.1 Monocytes % 4.2 Eosinophils % 0.6 Basophils % 0.1 Absolute Neutrophils 8.5 H Absolute Lymphocytes 2.0 Absolute Monocytes 0.5 Absolute Eosinophils 0.1 Absolute Basophils 0.0 Ferritin 401.00 H Impressions: Obstetrics Ultrasound 04/07/18 00:00 IMPRESSION: LIMITED OBSTETRICAL ULTRASOUND WITH MEASURED PARAMETERS DELINEATED ABOVE. Trimester of : Third trimester - 28 weeks to delivery. Assessment & Plan - Diagnosis (1) Gestational diabetes mellitus (GDM) in childbirth, insulin controlled Is this a current diagnosis for this admission?: Yes (2) Gestational hypertension Qualifiers: Trimester: third trimester Qualified Code(s): O13.3 - Gestational [ -induced] hypertension without significant proteinuria, third trimester Is this a current diagnosis for this admission?: Yes (3) Headache Qualifiers: Headache chronicity pattern: episodic headache Is this a current diagnosis for this admission?: Yes - Plan Summary Plan Summary: continue to monitor. Am planning delivery at 37 wks which should be for Apr 24.
[2018-04-18] MEDS: BUTALB/ACETAMINOPHEN/CAFFEINE 1 TAB EACH PO PRN ×3 (05:12→21:10)
[2018-04-18] MEDS: LANSOPRAZOLE 15 MG TAB.RAP.DR PO SCH (05:13)
[2018-04-18] MEDS: METFORMIN HCL 500 MG TABLET PO SCH ×2 (08:51→17:12)
[2018-04-18] MEDS: INSULIN REG, HUMAN 100 UNIT/ML 3 ML VIAL (PYX) SUBCUT SCH ×3 (08:51→17:14)
[2018-04-18] MEDS: INSULIN NPH (ISOPHANE), HUMAN 100 UNIT/ML 3 ML SUBCUT SCH ×2 (08:54→21:10)
[2018-04-18] MEDS: MAGNESIUM OXIDE 400 MG TABLET PO SCH (10:56)
[2018-04-18] MEDS: DOCUSATE SODIUM 100 MG CAPSULE PO SCH ×2 (10:56→17:14)
[2018-04-18] MEDS: FERROUS SULFATE 325 MG TABLET PO SCH (10:56)
[2018-04-18] MEDS: ESCITALOPRAM OXALATE 10 MG TABLET PO SCH (10:57)
--- NOTE | 2018-04-18 17:24 | PDOC PROGRESS REPORT ---
Subjective Progress Note for:: 04/18/18 Subjective:: Pt. denies headache today, reports +FM and irregular contractions last night. Denies any other concerns. Reason For Visit: CHTN,SUPERIMPOSED PRE-ECLAMPSIA,IDDM Physical Exam - Physical Exam Vital Signs: Temp Pulse Resp BP Pulse Ox 98.1 F 91 20 135/88 H 99 04/18/18 15:03 04/18/18 15:03 04/18/18 15:03 04/18/18 15:03 04/18/18 15:03 Intake & Output 04/17/18 04/18/18 04/19/18 06:59 06:59 06:59 Intake Total 1492 2200 760 Output Total 3 Balance 1489 2200 760 Weight 115.5 kg 114.8 kg General appearance: PRESENT: no acute distress Result Laboratory Results: 04/17/18 07:16 04/10/18 15:40 Impressions: Obstetrics Ultrasound 04/07/18 00:00 IMPRESSION: LIMITED OBSTETRICAL ULTRASOUND WITH MEASURED PARAMETERS DELINEATED ABOVE. Trimester of : Third trimester - 28 weeks to delivery. Assessment & Plan - Diagnosis (1) Chronic hypertension with superimposed pre-eclampsia Is this a current diagnosis for this admission?: Yes (2) Obesity Qualifiers: Obesity type: unspecified obesity type Serious obesity comorbidity presence : unspecified whether serious comorbidity present Body mass index: BMI 40.0- 44.9 Is this a current diagnosis for this admission?: Yes (3) and insulin-dependent diabetes mellitus in third trimester Is this a current diagnosis for this admission?: Yes - Plan Summary Plan Summary: continue present management. Discussed normal glucose today as well as mild bps with Dr. Vega who agrees with continuing plan of care.
[2018-04-19] MEDS: BUTALB/ACETAMINOPHEN/CAFFEINE 1 TAB EACH PO PRN ×2 (05:27→18:19)
[2018-04-19] MEDS: LANSOPRAZOLE 15 MG TAB.RAP.DR PO SCH (05:31)
[2018-04-19] MEDS: METFORMIN HCL 500 MG TABLET PO SCH ×2 (08:03→17:11)
[2018-04-19] MEDS: INSULIN NPH (ISOPHANE), HUMAN 100 UNIT/ML 3 ML SUBCUT SCH ×2 (08:08→21:47)
[2018-04-19] MEDS: INSULIN REG, HUMAN 100 UNIT/ML 3 ML VIAL (PYX) SUBCUT SCH ×3 (08:09→17:11)
--- NOTE | 2018-04-19 09:22 | PDOC PROGRESS REPORT ---
Subjective Progress Note for:: 04/19/18 Subjective:: reports +FM, denies LOF or bleeding. Reports mild cramping last night but not as bad as the night before. Denies headache/vision changes or other concerns. Reason For Visit: CHTN,SUPERIMPOSED PRE-ECLAMPSIA,IDDM Physical Exam - Physical Exam Vital Signs: Temp Pulse Resp BP Pulse Ox 98.2 F 99 18 143/72 H 98 04/19/18 08:41 04/19/18 08:41 04/19/18 08:41 04/19/18 08:41 04/19/18 08:41 Intake & Output 04/18/18 04/19/18 04/20/18 06:59 06:59 06:59 Intake Total 2200 1260 480 Balance 2200 1260 480 Weight 114.8 kg 114.9 kg General appearance: PRESENT: no acute distress Exam: abdomen soft, nt, bilateral lower extremity edema Neurological exam: PRESENT: alert, oriented to person, oriented to place, oriented to time Additional comments: NST reactive yesterday, NST ongoing this AM. Glucose wnl in the last 24hrs, mild elevated bps continue. Result Laboratory Results: 04/17/18 07:16 04/10/18 15:40 Impressions: Obstetrics Ultrasound 04/07/18 00:00 IMPRESSION: LIMITED OBSTETRICAL ULTRASOUND WITH MEASURED PARAMETERS DELINEATED ABOVE. Trimester of : Third trimester - 28 weeks to delivery. Assessment & Plan - Diagnosis (1) Chronic hypertension with superimposed pre-eclampsia Is this a current diagnosis for this admission?: Yes (2) Obesity Qualifiers: Obesity type: unspecified obesity type Serious obesity comorbidity presence : unspecified whether serious comorbidity present Body mass index: BMI 40.0- 44.9 Is this a current diagnosis for this admission?: Yes (3) and insulin-dependent diabetes mellitus in third trimester Is this a current diagnosis for this admission?: Yes - Plan Summary Plan Summary: continue present management will repeat ROCIO, ob sono for growth/position today. Reviewed with Dr. Vega.
[2018-04-19] MEDS: ESCITALOPRAM OXALATE 10 MG TABLET PO SCH (10:02)
[2018-04-19] MEDS: FERROUS SULFATE 325 MG TABLET PO SCH (10:02)
[2018-04-19] MEDS: DOCUSATE SODIUM 100 MG CAPSULE PO SCH ×2 (10:02→17:11)
[2018-04-19] MEDS: MAGNESIUM OXIDE 400 MG TABLET PO SCH (10:03)
[2018-04-19] MEDS: ACETAMINOPHEN 325 MG TABLET PO PRN ×2 (10:03→21:47)
--- NOTE | 2018-04-19 13:06 | RADIOLOGY REPORT (SQ) ---
EXAM DESCRIPTION: U/S OB LIMITED COMPLETED DATE/TIME: 04/19/2018 12:47 pm REASON FOR STUDY: antepartum with superimposed pre-e, IDD COMPARISON: 04/07/2018, 04/05/2018, 10/31/2017 TECHNIQUE: Limited transabdominal grayscale ultrasound for evaluation of specific requested obstetri queenie parameters. LIMITATIONS: None. FINDINGS: CERVICAL LENGTH: Not evaluated ROCIO: 6.8 cm cm. FHR: 132 beats per minute. PRESENTATION: Cephalic. PLACENTA: Anterior fundal grade 1 ANATOMY: Not assessed OTHER: Estimated weight 2743 g, at the 38th percentile for gestational age. IMPRESSION: LIMITED OBSTETRICAL ULTRASOUND WITH MEASURED PARAMETERS DELINEATED ABOVE. Trimester of : Third trimester - 28 weeks to delivery. TECHNICAL DOCUMENTATION: JOB ID: [id number] [employer]- All Rights Reserved Reading location - IP/workstation name: [email or web address]
[2018-04-20] MEDS ORDERED: PROMETHAZINE HCL 25 MG TABLET ONE (02:12)
[2018-04-20] MEDS ORDERED: ONDANSETRON 4 MG TAB.RAPDIS PO PRN (02:19)
[2018-04-20] MEDS ORDERED: PROMETHAZINE HCL 25 MG TABLET PO ONE (02:30)
[2018-04-20] MEDS: LANSOPRAZOLE 15 MG TAB.RAP.DR PO SCH (06:03)
[2018-04-20] MEDS: INSULIN NPH (ISOPHANE), HUMAN 100 UNIT/ML 3 ML SUBCUT SCH ×2 (08:11→21:08)
[2018-04-20] MEDS: INSULIN REG, HUMAN 100 UNIT/ML 3 ML VIAL (PYX) SUBCUT SCH ×3 (08:11→17:59)
[2018-04-20] MEDS: METFORMIN HCL 500 MG TABLET PO SCH ×2 (08:12→17:59)
[2018-04-20] MEDS: ESCITALOPRAM OXALATE 10 MG TABLET PO SCH (09:28)
[2018-04-20] MEDS: MAGNESIUM OXIDE 400 MG TABLET PO SCH (09:28)
[2018-04-20] MEDS: FERROUS SULFATE 325 MG TABLET PO SCH (09:28)
[2018-04-20] MEDS: DOCUSATE SODIUM 100 MG CAPSULE PO SCH ×2 (09:29→17:59)
[2018-04-20] MEDS: BUTALB/ACETAMINOPHEN/CAFFEINE 1 TAB EACH PO PRN ×2 (11:00→20:05)
--- NOTE | 2018-04-20 12:50 | PDOC PROGRESS REPORT ---
Subjective Progress Note for:: 04/20/18 Subjective:: Patient states that she feels good. She is ambulating voiding without difficulty. She admits to good movement and has no complaints today. Reason For Visit: CHTN,SUPERIMPOSED PRE-ECLAMPSIA,IDDM Physical Exam - Physical Exam Vital Signs: Temp Pulse Resp BP Pulse Ox 98.1 F 95 24 H 141/83 H 97 04/20/18 11:25 04/20/18 11:25 04/20/18 11:25 04/20/18 11:25 04/20/18 11:25 Intake & Output 04/19/18 04/20/18 04/21/18 06:59 06:59 06:59 Intake Total 1260 1360 Balance 1260 1360 Weight 114.9 kg 116.9 kg General appearance: PRESENT: no acute distress Respiratory exam: PRESENT: clear to auscultation donis Cardiovascular exam: PRESENT: RRR GI/Abdominal exam: PRESENT: normal bowel sounds, soft Extremities exam: ABSENT: calf tenderness, clubbing, full ROM, joint swelling, pedal edema, tenderness, +1 edema, +2 edema, other Result Laboratory Results: 04/17/18 07:16 04/10/18 15:40 Impressions: Obstetrics Ultrasound 04/19/18 00:00 IMPRESSION: LIMITED OBSTETRICAL ULTRASOUND WITH MEASURED PARAMETERS DELINEATED ABOVE. Trimester of : Third trimester - 28 weeks to delivery. Assessment & Plan - Diagnosis (1) Chronic hypertension with superimposed pre-eclampsia Is this a current diagnosis for this admission?: Yes (2) Obesity Qualifiers: Obesity type: due to excess calories Serious obesity comorbidity presence: unspecified whether serious comorbidity present Body mass index: BMI 40.0- 44.9 Is this a current diagnosis for this admission?: Yes (3) and insulin-dependent diabetes mellitus in third trimester Is this a current diagnosis for this admission?: Yes (4) Gestational diabetes mellitus (GDM) in childbirth, insulin controlled Is this a current diagnosis for this admission?: Yes (5) Gestational hypertension Qualifiers: Trimester: third trimester Qualified Code(s): O13.3 - Gestational [ -induced] hypertension without significant proteinuria, third trimester Is this a current diagnosis for this admission?: Yes (6) Headache Qualifiers: Headache chronicity pattern: episodic headache Is this a current diagnosis for this admission?: Yes - Time Time Spent with patient: Less than 15 minutes - Patient states that she is doing well but is anxious to be delivered in a few days. - Plan Summary Plan Summary: Plan: 1. continue current medication regimen--sugar values within normal limits 2. Continue scheduled NSTs
[2018-04-20 18:12] LABS: ABSOLUTE BASOPHILS # (AUTO) 0.1 10^3/uL (0.0-0.2); ABSOLUTE LYMPHOCYTES (AUTO) 1.9 10^3/uL (0.5-4.7); ABSOLUTE MONOCYTES (AUTO) 0.6 10^3/uL (0.1-1.4); ABSOLUTE NEUT (AUTO) 8.5 10^3/uL (1.7-8.2); BASOPHILS % (AUTO) 0.5 % (0-2); EOSINOPHILS % (AUTO) 0.4 % (0-6); HEMATOCRIT 32.3 % (36.0-47.0); HEMOGLOBIN 10.6 g/dL (12.0-15.5); LYMPHOCYTES % (AUTO) 17.4 % (13-45); MEAN CORPUSCULAR HEMOGLOBIN 28.7 pg (27.0-33.4); MEAN CORPUSCULAR HGB CONC 32.8 g/dL (32.0-36.0); MEAN CORPUSCULAR VOLUME 87 fl (80-97); MONOCYTES % (AUTO) 5.2 % (3-13); PLATELET COUNT 375 10^3/uL (150-450); RED CELL DISTRIBUTION WIDTH 21.9 % (11.5-14.0); SEGMENTED NEUTROPHILS % (AUTO) 76.5 % (42-78); TOTAL CELLS COUNTED % (AUTO) 100 %; WHITE BLOOD COUNT 11.1 10^3/uL (4.0-10.5)
[2018-04-20 18:20] LABS: ALANINE AMINOTRANSFERASE 22 U/L (9-52); ALBUMIN 3.2 g/dL (3.5-5.0); ALKALINE PHOSPHATASE 201 U/L (38-126); ANION GAP 9 (5-19); ASPARTATE AMINO TRANSFERASE 23 U/L (14-36); BILIRUBIN,DIRECT 0.3 mg/dL (0.0-0.4); BILIRUBIN,TOTAL 0.4 mg/dL (0.2-1.3); BLOOD UREA NITROGEN 7 mg/dL (7-20); CALCIUM 9.4 mg/dL (8.4-10.2); CARBON DIOXIDE 24 mmol/L (22-30); CHLORIDE 106 mmol/L (98-107); GLUCOSE 85 mg/dL (75-110); POTASSIUM 3.9 mmol/L (3.6-5.0); SODIUM 139.2 mmol/L (137-145); URIC ACID 4.1 mg/dL (2.5-6.2)
--- NOTE | 2018-04-20 19:17 | PDOC PROGRESS REPORT ---
Subjective Progress Note for:: 04/20/18 Subjective:: Pt a little nauseated today and not feeling groggy. Normal quality headache. No vision changes. Reason For Visit: CHTN,SUPERIMPOSED PRE-ECLAMPSIA,IDDM Physical Exam - Physical Exam Vital Signs: Temp Pulse Resp BP Pulse Ox 98.1 F 96 24 H 140/90 H 98 04/20/18 16:22 04/20/18 16:22 04/20/18 11:25 04/20/18 16:22 04/20/18 16:22 Intake & Output 04/19/18 04/20/18 04/21/18 06:59 06:59 06:59 Intake Total 1260 1360 750 Balance 1260 1360 750 Weight 114.9 kg 116.9 kg Result Laboratory Results: 04/20/18 17:54 04/20/18 17:39 04/20/18 04/20/18 17:39 17:54 WBC 11.1 H RBC 3.70 L Hgb 10.6 L Hct 32.3 L MCV 87 MCH 28.7 MCHC 32.8 RDW 21.9 H Plt Count 375 Seg Neutrophils % 76.5 Lymphocytes % 17.4 Monocytes % 5.2 Eosinophils % 0.4 Basophils % 0.5 Absolute Neutrophils 8.5 H Absolute Lymphocytes 1.9 Absolute Monocytes 0.6 Absolute Eosinophils 0.0 Absolute Basophils 0.1 Sodium 139.2 Potassium 3.9 Chloride 106 Carbon Dioxide 24 Anion Gap 9 BUN 7 Creatinine 0.39 L Est GFR ( Amer) > 60 Est GFR (Non-Af Amer) > 60 Glucose 85 Uric Acid 4.1 Calcium 9.4 Total Bilirubin 0.4 AST 23 ALT 22 Alkaline Phosphatase 201 H Total Protein 6.0 L Albumin 3.2 L Impressions: Obstetrics Ultrasound 04/19/18 00:00 IMPRESSION: LIMITED OBSTETRICAL ULTRASOUND WITH MEASURED PARAMETERS DELINEATED ABOVE. Trimester of : Third trimester - 28 weeks to delivery. Assessment & Plan - Diagnosis (1) Chronic hypertension with superimposed pre-eclampsia Is this a current diagnosis for this admission?: Yes (2) Obesity Qualifiers: Obesity type: due to excess calories Serious obesity comorbidity presence: unspecified whether serious comorbidity present Body mass index: BMI 40.0- 44.9 Is this a current diagnosis for this admission?: Yes (3) and insulin-dependent diabetes mellitus in third trimester Is this a current diagnosis for this admission?: Yes (4) Gestational diabetes mellitus (GDM) in childbirth, insulin controlled Is this a current diagnosis for this admission?: Yes (5) Gestational hypertension Qualifiers: Trimester: third trimester Qualified Code(s): O13.3 - Gestational [ -induced] hypertension without significant proteinuria, third trimester Is this a current diagnosis for this admission?: Yes (6) Headache Qualifiers: Headache chronicity pattern: episodic headache Is this a current diagnosis for this admission?: Yes - Plan Summary Plan Summary: Plan: 1. PIH work up--all labs WNL 2. Symptoms may have been secondary to Phenergan last night
[2018-04-20 21:59] LABS: UR PRO/CREAT RATIO RESULT 0.1 mg/mg (0.0-0.2); URINE CREATININE 154.5 mg/dL (16-327); URINE PROTEIN 22.2 mg/dL (<12)
[2018-04-21] MEDS: PROMETHAZINE HCL 25 MG TABLET PO PRN ×3 (01:25→21:20)
[2018-04-21] MEDS: BUTALB/ACETAMINOPHEN/CAFFEINE 1 TAB EACH PO PRN ×3 (02:11→15:31)
[2018-04-21] MEDS: LANSOPRAZOLE 15 MG TAB.RAP.DR PO SCH (06:11)
[2018-04-21] MEDS: INSULIN NPH (ISOPHANE), HUMAN 100 UNIT/ML 3 ML SUBCUT SCH ×2 (08:15→21:15)
[2018-04-21] MEDS: INSULIN REG, HUMAN 100 UNIT/ML 3 ML VIAL (PYX) SUBCUT SCH ×3 (08:16→17:09)
[2018-04-21] MEDS: METFORMIN HCL 500 MG TABLET PO SCH ×2 (08:16→17:08)
--- NOTE | 2018-04-21 09:30 | PDOC PROGRESS REPORT ---
Subjective Progress Note for:: 04/21/18 Subjective:: doing well. headache is manageable. plan for delivery at 37 wks Reason For Visit: CHTN,SUPERIMPOSED PRE-ECLAMPSIA,IDDM Physical Exam - Physical Exam Vital Signs: Temp Pulse Resp BP Pulse Ox 98.0 F 105 H 18 119/83 96 04/21/18 08:01 04/21/18 08:01 04/21/18 08:01 04/21/18 08:01 04/21/18 08:01 Intake & Output 04/20/18 04/21/18 04/22/18 06:59 06:59 06:59 Intake Total 1360 750 Balance 1360 750 Weight 116.9 kg General appearance: PRESENT: no acute distress, cooperative Extremities exam: PRESENT: +1 edema Result Laboratory Results: 04/20/18 17:54 04/20/18 17:39 04/20/18 04/20/18 17:39 17:54 WBC 11.1 H RBC 3.70 L Hgb 10.6 L Hct 32.3 L MCV 87 MCH 28.7 MCHC 32.8 RDW 21.9 H Plt Count 375 Seg Neutrophils % 76.5 Lymphocytes % 17.4 Monocytes % 5.2 Eosinophils % 0.4 Basophils % 0.5 Absolute Neutrophils 8.5 H Absolute Lymphocytes 1.9 Absolute Monocytes 0.6 Absolute Eosinophils 0.0 Absolute Basophils 0.1 Sodium 139.2 Potassium 3.9 Chloride 106 Carbon Dioxide 24 Anion Gap 9 BUN 7 Creatinine 0.39 L Est GFR ( Amer) > 60 Est GFR (Non-Af Amer) > 60 Glucose 85 Uric Acid 4.1 Calcium 9.4 Total Bilirubin 0.4 AST 23 ALT 22 Alkaline Phosphatase 201 H Total Protein 6.0 L Albumin 3.2 L Impressions: Obstetrics Ultrasound 04/19/18 00:00 IMPRESSION: LIMITED OBSTETRICAL ULTRASOUND WITH MEASURED PARAMETERS DELINEATED ABOVE. Trimester of : Third trimester - 28 weeks to delivery. Assessment & Plan - Diagnosis (1) Gestational diabetes mellitus (GDM) in childbirth, insulin controlled Is this a current diagnosis for this admission?: Yes (2) Gestational hypertension Qualifiers: Trimester: third trimester Qualified Code(s): O13.3 - Gestational [ -induced] hypertension without significant proteinuria, third trimester Is this a current diagnosis for this admission?: Yes (3) Headache Qualifiers: Headache chronicity pattern: episodic headache Is this a current diagnosis for this admission?: Yes - Time Time Spent with patient: Less than 15 minutes Anticipated discharge: Home, Other - Inpatient Certification Based on my medical assessment, after consideration of the patient's comorbidities, presenting symptoms, or acuity I expect that the services needed warrant INPATIENT care.: Yes I certify that my determination is in accordance with my understanding of Medicare's requirements for reasonable and necessary INPATIENT services [42 CFR 412.3e].: Yes Medical Necessity: Need Close Monitoring Due to Risk of Patient Decompensation - Plan Summary Plan Summary: plan for IOL approx Apr 24 for [facility].
[2018-04-21] MEDS: DOCUSATE SODIUM 100 MG CAPSULE PO SCH ×2 (10:08→17:11)
[2018-04-21] MEDS: MAGNESIUM OXIDE 400 MG TABLET PO SCH (10:09)
[2018-04-21] MEDS: ESCITALOPRAM OXALATE 10 MG TABLET PO SCH (10:09)
[2018-04-21] MEDS: FERROUS SULFATE 325 MG TABLET PO SCH (10:09)
[2018-04-22] MEDS: LANSOPRAZOLE 15 MG TAB.RAP.DR PO SCH (06:04)
[2018-04-22] MEDS: BUTALB/ACETAMINOPHEN/CAFFEINE 1 TAB EACH PO PRN ×3 (06:08→18:24)
[2018-04-22] MEDS: INSULIN NPH (ISOPHANE), HUMAN 100 UNIT/ML 3 ML SUBCUT SCH ×2 (07:31→20:59)
[2018-04-22] MEDS: METFORMIN HCL 500 MG TABLET PO SCH ×2 (07:32→16:53)
[2018-04-22] MEDS: INSULIN REG, HUMAN 100 UNIT/ML 3 ML VIAL (PYX) SUBCUT SCH ×3 (07:32→16:53)
[2018-04-22] MEDS: FERROUS SULFATE 325 MG TABLET PO SCH (09:57)
[2018-04-22] MEDS: ESCITALOPRAM OXALATE 10 MG TABLET PO SCH (09:57)
[2018-04-22] MEDS: MAGNESIUM OXIDE 400 MG TABLET PO SCH (09:57)
[2018-04-22] MEDS: DOCUSATE SODIUM 100 MG CAPSULE PO SCH ×2 (09:57→17:00)
[2018-04-22] MEDS: ACETAMINOPHEN 325 MG TABLET PO PRN ×2 (09:59→18:19)
[2018-04-22] MEDS: PROMETHAZINE HCL 25 MG TABLET PO PRN ×3 (14:05→22:27)
--- NOTE | 2018-04-22 18:17 | PDOC PROGRESS REPORT ---
Subjective Progress Note for:: 04/22/18 - NST CAT1 and reactive; Euglycemic w/ current regimen Subjective:: Pt with complaints of 3/10 headache after use of fioricet and promethazine. Pt states having visual changes of blurred vision today. Denies epigastric or RUQ pain. Good fm, no vb, no lof and no ctxs. Mild nausea today but no emesis. Reason For Visit: CHTN,SUPERIMPOSED PRE-ECLAMPSIA,IDDM Physical Exam - Physical Exam Vital Signs: Temp Pulse Resp BP Pulse Ox 98.5 F 98 18 126/72 H 97 04/22/18 16:00 04/22/18 16:00 04/22/18 16:00 04/22/18 16:00 04/22/18 16:00 Intake & Output 04/21/18 04/22/18 04/23/18 06:59 06:59 06:59 Intake Total 750 1460 Balance 750 1460 Weight 112.9 kg General appearance: PRESENT: no acute distress, cooperative, morbidly obese Head exam: PRESENT: atraumatic, normocephalic Eye exam: PRESENT: conjunctiva pink, EOMI Cardiovascular exam: PRESENT: RRR, +S1, +S2 Vascular exam: PRESENT: normal capillary refill GI/Abdominal exam: PRESENT: normal bowel sounds, soft, other - gravid and NT Rectal exam: PRESENT: deferred Extremities exam: PRESENT: +1 edema, other - negative homans Neurological exam: PRESENT: alert, awake, oriented to person, oriented to place , oriented to time, oriented to situation, reflexes normal Psychiatric exam: PRESENT: appropriate affect, normal mood - Obstetrical Exam Vagina: not examined Adhexa: not examined Result Laboratory Results: 04/20/18 17:54 04/20/18 17:39 Impressions: Obstetrics Ultrasound 04/19/18 00:00 IMPRESSION: LIMITED OBSTETRICAL ULTRASOUND WITH MEASURED PARAMETERS DELINEATED ABOVE. Trimester of : Third trimester - 28 weeks to delivery. Assessment & Plan - Diagnosis (1) Chronic hypertension with superimposed pre-eclampsia Is this a current diagnosis for this admission?: Yes (2) Obesity Qualifiers: Obesity type: due to excess calories Serious obesity comorbidity presence: unspecified whether serious comorbidity present Body mass index: BMI 40.0- 44.9 Is this a current diagnosis for this admission?: Yes (3) and insulin-dependent diabetes mellitus in third trimester Is this a current diagnosis for this admission?: Yes (4) Diabetes mellitus affecting in third trimester Is this a current diagnosis for this admission?: Yes (5) Headache Qualifiers: Headache type: unspecified Headache chronicity pattern: episodic headache Intractability: not intractable Qualified Code(s): R51 - Headache Is this a current diagnosis for this admission?: Yes Plan: Continue fioricet and promethazine - Time Time Spent with patient: Less than 15 minutes Medications reviewed and adjusted accordingly: Yes Anticipated discharge: Other - transfer to L&D tomorrow evening for IOL - Plan Summary Plan Summary: Continue current management with IOL tomorrow evening
[2018-04-23] MEDS: LANSOPRAZOLE 15 MG TAB.RAP.DR PO SCH (06:12)
[2018-04-23] MEDS: BUTALB/ACETAMINOPHEN/CAFFEINE 1 TAB EACH PO PRN ×2 (06:16→18:09)
[2018-04-23] MEDS: INSULIN REG, HUMAN 100 UNIT/ML 3 ML VIAL (PYX) SUBCUT SCH ×3 (07:28→17:21)
[2018-04-23] MEDS: INSULIN NPH (ISOPHANE), HUMAN 100 UNIT/ML 3 ML SUBCUT SCH ×2 (07:28→21:42)
[2018-04-23] MEDS: METFORMIN HCL 500 MG TABLET PO SCH ×2 (07:29→17:20)
[2018-04-23] MEDS: FERROUS SULFATE 325 MG TABLET PO SCH (10:25)
[2018-04-23] MEDS: ESCITALOPRAM OXALATE 10 MG TABLET PO SCH (10:25)
[2018-04-23] MEDS: DOCUSATE SODIUM 100 MG CAPSULE PO SCH ×2 (10:25→17:21)
[2018-04-23] MEDS: MAGNESIUM OXIDE 400 MG TABLET PO SCH (10:25)
[2018-04-24] MEDS: BUTALB/ACETAMINOPHEN/CAFFEINE 1 TAB EACH PO PRN ×2 (03:12→17:46)
--- NOTE | 2018-04-24 03:52 | Non Stress Test Report ---
Non Stress Test Datetime Report Generated by CPN: 04/24/2018 03:51 DEMOGRAPHIC EGA NST: 34.0 INDICATION Indication for Study: Ordered by Provider MONITORING Monitor Explained: Monitor Explained; Test Explained Time on Monitor: 04/03/2018 14:34 Time off Monitor: 04/03/2018 14:54 NST Duration: 20 NST INTERVENTIONS NST Interventions: PO Hydration; Meal Given; Reposition Patient Physician Notified NST: Dr. Oneill BABY A: [id number] BABY A Movement : Present Contraction Frequency : None FHR Baseline : 140 Accelerations : 15X15 Decelerations : None Variability : Moderate 6-25bpm NST Review: Meets Criteria for Reactive NST NST Review and Verified By : PURA PITT Results: Reactive NST REPORT Report Trigger: Send Report
[2018-04-24] MEDS ORDERED: OXYTOCIN/NORMAL SALINE 20 UNIT/1,000 ML RTUINJ IV PRN (04:03)
[2018-04-24] MEDS ORDERED: MAG HYDROX/AL HYDROX/SIMETH SUSP 30 ML UDCUP PO PRN (04:03)
[2018-04-24] MEDS ORDERED: ZOLPIDEM TARTRATE 5 MG TABLET PO PRN (04:03)
[2018-04-24] MEDS ORDERED: RINGERS SOLUTION,LACTATED 300 ML IV ONE (04:15)
[2018-04-24] MEDS ORDERED: DINOPROSTONE 10 MG VAGINAL INSERT.SR PV ONE (04:15)
[2018-04-24] MEDS ORDERED: DINOPROSTONE 10 MG VAGINAL INSERT.SR ONE ×2 (04:20→19:59)
[2018-04-24] MEDS: RINGERS SOLUTION,LACTATED 1,000 ML IV PRN (04:24)
[2018-04-24 05:04] LABS: ABSOLUTE BASOPHILS # (AUTO) 0.1 10^3/uL (0.0-0.2); ABSOLUTE EOSINOPHILS # (AUTO) 0.1 10^3/uL (0.0-0.6); ABSOLUTE LYMPHOCYTES (AUTO) 1.9 10^3/uL (0.5-4.7); ABSOLUTE MONOCYTES (AUTO) 0.6 10^3/uL (0.1-1.4); ABSOLUTE NEUT (AUTO) 8.2 10^3/uL (1.7-8.2); BASOPHILS % (AUTO) 0.7 % (0-2); EOSINOPHILS % (AUTO) 0.6 % (0-6); HEMATOCRIT 29.6 % (36.0-47.0); HEMOGLOBIN 9.9 g/dL (12.0-15.5); LYMPHOCYTES % (AUTO) 17.8 % (13-45); MEAN CORPUSCULAR HEMOGLOBIN 29.1 pg (27.0-33.4); MEAN CORPUSCULAR HGB CONC 33.4 g/dL (32.0-36.0); MEAN CORPUSCULAR VOLUME 87 fl (80-97); MONOCYTES % (AUTO) 5.2 % (3-13); PLATELET COUNT 338 10^3/uL (150-450); RED BLOOD COUNT 3.39 10^6/uL (3.72-5.28); SEGMENTED NEUTROPHILS % (AUTO) 75.7 % (42-78); TOTAL CELLS COUNTED % (AUTO) 100 %; WHITE BLOOD COUNT 10.8 10^3/uL (4.0-10.5)
[2018-04-24 05:07] LABS: ALANINE AMINOTRANSFERASE 20 U/L (9-52); ALKALINE PHOSPHATASE 181 U/L (38-126); ANION GAP 13 (5-19); ASPARTATE AMINO TRANSFERASE 21 U/L (14-36); BILIRUBIN,DIRECT 0.4 mg/dL (0.0-0.4); BILIRUBIN,TOTAL 0.6 mg/dL (0.2-1.3); BLOOD UREA NITROGEN 7 mg/dL (7-20); CARBON DIOXIDE 21 mmol/L (22-30); CHLORIDE 106 mmol/L (98-107); GLUCOSE 76 mg/dL (75-110); POTASSIUM 3.7 mmol/L (3.6-5.0); SODIUM 140.4 mmol/L (137-145); TOTAL PROTEIN 5.7 g/dL (6.3-8.2); URIC ACID 4.2 mg/dL (2.5-6.2)
[2018-04-24 07:03] LABS: RUBELLA IGG ANTIBODY 1.13 IU/mL
[2018-04-24 07:08] LABS: RUBELLA INTERPRETATION NEGATIVE
--- NOTE | 2018-04-24 08:41 | L&D Progress Notes ---
PROGRESS NOTES Datetime Report Generated by CPN: 04/24/2018 08:39 PROGRESS NOTE Impression: Reassuring Heart Rate Plan: Cervical Ripening Informed Consent Obtained: Vaginal Delivery; Risks, Benefits and Alternatives Discussed Comment: Cramping, cervidil in place, Cat 1 strip LAST VAGINAL EXAM-NURSING Dilitation: fingertip Effacement: thick Station: high FETUS A Presentation: Vertex SIGNATURE SIGNATURE: [id number];13,[id number];14,[id number] SIGNATURE: 14,[id number];13,[id number] SIGNATURE: 13,[id number];14,[id number] SIGNATURE: 14,[id number];13,[id number] SIGNATURE: 13,[id number] Assignment: Rodolfo Oneill MD Signature: with User ID: Shannon : with User ID: [email or web address]
[2018-04-24] MEDS ORDERED: BUTALB/ACETAMINOPHEN/CAFFEINE 1 TAB EACH ONE ×2 (10:26→17:42)
[2018-04-24] MEDS ORDERED: PROMETHAZINE HCL 25 MG TABLET ONE (13:08)
[2018-04-24] MEDS ORDERED: INSULIN NPH (ISOPHANE), HUMAN 100 UNIT/ML 3 ML ONE ×2 (14:54→20:26)
[2018-04-24] MEDS ORDERED: DOCUSATE SODIUM 100 MG CAPSULE ONE (14:55)
[2018-04-24] MEDS: INSULIN NPH (ISOPHANE), HUMAN 100 UNIT/ML 3 ML SUBCUT SCH ×2 (15:00→20:41)
[2018-04-24] MEDS: ESCITALOPRAM OXALATE 10 MG TABLET PO SCH (15:02)
[2018-04-24] MEDS: DOCUSATE SODIUM 100 MG CAPSULE PO SCH ×2 (15:02→20:40)
[2018-04-24] MEDS: METFORMIN HCL 500 MG TABLET PO SCH ×2 (15:03→20:38)
[2018-04-24] MEDS: INSULIN REG, HUMAN 100 UNIT/ML 3 ML VIAL (PYX) SUBCUT SCH ×3 (15:25→20:39)
--- NOTE | 2018-04-24 16:07 | L&D Progress Notes ---
PROGRESS NOTES Datetime Report Generated by CPN: 04/24/2018 16:06 PROGRESS NOTE Impression: Reassuring Heart Rate Plan: Continue Present Management; Cervical Ripening Vital Signs : Reviewed; Within Normal Limits Comment: Irreg uc's, Cat 1 strip, no c/o, cervidil remains in place MEMBRANES Membranes: Intact FETUS A Monitoring: External US Variability: Moderate 6-25bpm Accelerations: 15X15 Decelerations: None FHR Category: Category I FETUS C SIGNATURE: [id number];13,[id number];10,[id number] Assignment: Rodolfo Oneill MD Signature: with User ID: Shannon : with User ID: [email or web address]
[2018-04-24 19:55] LABS: CHLAM PCR NOT DETECTED (NOT DETECT); GON PCR NOT DETECTED (NOT DETECT)
[2018-04-24] MEDS ORDERED: PROMETHAZINE HCL INJ 25 MG/1 ML VIAL ONE (19:59)
[2018-04-24] MEDS: PROMETHAZINE HCL INJ 25 MG/1 ML VIAL IV PRN (20:04)
[2018-04-24] MEDS: LANSOPRAZOLE 15 MG TAB.RAP.DR PO SCH (20:38)
[2018-04-24] MEDS: MAGNESIUM OXIDE 400 MG TABLET PO SCH (20:39)
[2018-04-25] MEDS ORDERED: BUTALB/ACETAMINOPHEN/CAFFEINE 1 TAB EACH ONE ×3 (06:40→19:32)
[2018-04-25] MEDS: BUTALB/ACETAMINOPHEN/CAFFEINE 1 TAB EACH PO PRN ×3 (06:43→19:36)
[2018-04-25] MEDS ORDERED: INSULIN NPH (ISOPHANE), HUMAN 100 UNIT/ML 3 ML ONE (08:21)
[2018-04-25] MEDS ORDERED: INSULIN REG, HUMAN 100 UNIT/ML 3 ML VIAL (PYX) ONE (08:22)
[2018-04-25] MEDS: INSULIN NPH (ISOPHANE), HUMAN 100 UNIT/ML 3 ML SUBCUT SCH (08:25)
[2018-04-25] MEDS: INSULIN REG, HUMAN 100 UNIT/ML 3 ML VIAL (PYX) SUBCUT SCH (08:26)
[2018-04-25] MEDS ORDERED: MISOPROSTOL 0.2 MG TABLET PO ONE (09:26)
[2018-04-25] MEDS ORDERED: MISOPROSTOL 0.1 MG TABLET ONE ×3 (10:06→14:41)
[2018-04-25] MEDS: ESCITALOPRAM OXALATE 10 MG TABLET PO SCH (14:50)
[2018-04-25] MEDS: MAGNESIUM OXIDE 400 MG TABLET PO SCH (14:51)
[2018-04-25] MEDS: LANSOPRAZOLE 15 MG TAB.RAP.DR PO SCH (14:51)
--- NOTE | 2018-04-25 14:55 | L&D Progress Notes ---
PROGRESS NOTES Datetime Report Generated by CPN: 04/25/2018 14:54 Impression Other: IUP @ 32a9x-KHP for superimposed pre-e and GDM A2 Procedures: Sterile Vag Exam Plan: Continue Present Management; Induction; Cervical Ripening Informed Consent Obtained: Induction of Labor; Risks, Benefits and Alternatives Discussed Vital Signs : Reviewed Vital Signs Comments: some elevations outside of mild range, pt with a headache and reports pain 3/5 with contractions Comment: S: reports increased pain with contractions, no concerns at this time. Denies s/s of pre-e except for a migraine O: cervix as stated, VSS as stated A: IUP @ 37w1d IOL for CHTN with super imposed pre-e and GDM-A2 P: Discussed protocol for glucose management in labor with Dr. Grier who recommends RBS q 4hr until labor starts, then insulin drip will be started per [facility] protocol. IV fluids changed to NS then to D5LR and patient will be NPO from now until delivery. Glucose stable this AM, Repeat cytotec (50mcg po, 25mcg pv) now re-assess in 4hrs or earlier prn. Pt. asked questions and verbalized understanding. Dr. Grier in house and aware of BP and progress. Dilatation: 0 Effacement: 50 Station: -2 Contractions: irregular Dilitation: ft Dilitation: closed Dilitation: fingertip Effacement: 50 Effacement: thick Effacement: thick Station: -2 Station: high Station: high Membranes: Intact FHR - Baseline: 135 Monitoring: External US Variability: Moderate 6-25bpm Accelerations: 15X15 FHR Category: Category I Assignment: Joo Chong MD Signature: with User ID: Nickolas : with User ID: [email or web address]
[2018-04-25] MEDS ORDERED: NALBUPHINE HCL INJ 10 MG/1 ML AMPULE ONE (15:34)
[2018-04-25] MEDS ORDERED: PROMETHAZINE HCL INJ 25 MG/1 ML VIAL ONE ×2 (15:34→22:00)
[2018-04-25] MEDS ORDERED: PROMETHAZINE HCL INJ 25 MG/1 ML VIAL IV ONE (15:35)
[2018-04-25] MEDS ORDERED: NALBUPHINE HCL INJ 10 MG/1 ML AMPULE IV ONE (15:35)
--- NOTE | 2018-04-25 16:49 | L&D Progress Notes ---
PROGRESS NOTES Datetime Report Generated by CPN: 04/25/2018 16:49 PROGRESS NOTE Procedures- Other: attempted gupta Plan: Cervical Ripening Vital Signs : Reviewed; Within Normal Limits Comment: Attempted gupta bulb placement; pt did not tolerate and poor lighting. Will try low dose pitocin. BP elevated-will order Hydralazine with parameters VAGINAL EXAM Dilatation: ft Effacement: 50% Station: -3 FETUS A FHR - Baseline: 140s Monitoring: External US Accelerations: 15X15 Decelerations: None : 37.1 FETUS C SIGNATURE: 14,[id number];13,[id number];10,[id number] SIGNATURE: 10,[id number];13,[id number];14,[id number] Signature: with User ID: [email or web address]
[2018-04-25] MEDS ORDERED: HYDRALAZINE HCL INJ/PF 20 MG/1 ML SDV ONE (17:04)
[2018-04-25] MEDS: HYDRALAZINE HCL INJ/PF 20 MG/1 ML SDV IV PRN ×2 (17:10→17:26)
[2018-04-25] MEDS ORDERED: OXYTOCIN/NORMAL SALINE 20 UNIT/1,000 ML RTUINJ ONE ×2 (19:32→19:35)
[2018-04-25] MEDS: PROMETHAZINE HCL INJ 25 MG/1 ML VIAL IV PRN (22:06)
[2018-04-26] MEDS ORDERED: NALBUPHINE HCL INJ 10 MG/1 ML AMPULE ONE ×2 (00:03→19:26)
[2018-04-26] MEDS ORDERED: HYDRALAZINE HCL INJ/PF 20 MG/1 ML SDV ONE ×3 (00:58→18:22)
[2018-04-26] MEDS: HYDRALAZINE HCL INJ/PF 20 MG/1 ML SDV IV PRN ×2 (01:50→18:28)
[2018-04-26] MEDS ORDERED: LABETALOL HCL INJ 20 MG/4 ML DISP.SYRIN IV ONE ×2 (02:53→03:10)
--- NOTE | 2018-04-26 02:57 | L&D Progress Notes ---
PROGRESS NOTES Datetime Report Generated by CPN: 04/26/2018 02:57 PROGRESS NOTE Impression: Normal Progression of Labor Plan: Continue Present Management Vital Signs : Reviewed; Within Normal Limits Comment: Pt had SROM at approx 0100--clear. Her BP has been elevated and received several doses of Hydralazine. Will now change to Labetalol. Pt is comfortable presently--some cervical change with low dose pitocin overnight VAGINAL EXAM Dilitation: 1.0 Effacement: 25 Station: -3 FETUS A FHR - Baseline: 140s Monitoring: External US Variability: Moderate 6-25bpm Decelerations: None FHR Category: Category I : 37.2 FETUS C SIGNATURE: [id number];13,[id number];14,[id number] Signature: with User ID: [email or web address]
[2018-04-26] MEDS ORDERED: PENICILLIN G-K 5 MILLION UNIT VIAL ONE ×5 (04:35→20:31)
[2018-04-26] MEDS ORDERED: DEXTROSE 5%-LACTATED RINGERS 1,000 ML IV PRN (05:09)
[2018-04-26] MEDS ORDERED: LANSOPRAZOLE 30 MG TAB.RAP.DR ONE (05:33)
[2018-04-26] MEDS ORDERED: BUTALB/ACETAMINOPHEN/CAFFEINE 1 TAB EACH ONE ×3 (05:46→12:36)
[2018-04-26] MEDS ORDERED: INSULIN REG, HUMAN 100 UNIT/ML 3 ML VIAL (PYX) ONE (05:58)
[2018-04-26] MEDS: METFORMIN HCL 500 MG TABLET PO SCH ×2 (05:58→05:59)
[2018-04-26] MEDS: DOCUSATE SODIUM 100 MG CAPSULE PO SCH ×2 (06:00→12:39)
[2018-04-26] MEDS: INSULIN REG, HUMAN 100 UNIT/ML 3 ML VIAL (PYX) SUBCUT SCH ×2 (06:00→06:01)
[2018-04-26] MEDS: INSULIN NPH (ISOPHANE), HUMAN 100 UNIT/ML 3 ML SUBCUT SCH (06:02)
[2018-04-26] MEDS: BUTALB/ACETAMINOPHEN/CAFFEINE 1 TAB EACH PO PRN ×2 (06:07→12:36)
[2018-04-26] MEDS ORDERED: DEXTROSE 40% GEL 15 GM TUBE PO PRN (06:19)
[2018-04-26] MEDS ORDERED: GLUCAGON,HUMAN RECOMB 1 MG INJ IM PRN (06:19)
[2018-04-26] MEDS ORDERED: INSULIN REG, HUMAN 100 UNIT/ML 3 ML VIAL (PYX) SUBCUT PRN (06:19)
[2018-04-26] MEDS ORDERED: DEXTROSE 50%-WATER SYRINGE 25 GM/50 ML DOSE IV PRN (06:19)
[2018-04-26] MEDS ORDERED: DEXTROSE 50%-WATER SYRINGE 12.5 GM/25 ML DOSE IV PRN (06:19)
[2018-04-26] MEDS ORDERED: DEXTROSE 40% GEL 15 GM TUBE X 2 PO PRN (06:19)
--- NOTE | 2018-04-26 06:59 | L&D Progress Notes ---
PROGRESS NOTES Datetime Report Generated by CPN: 04/26/2018 06:58 PROGRESS NOTE Impression: Normal Progression of Labor Plan: Continue Present Management Vital Signs : Reviewed; Within Normal Limits Comment: Pt finally making some cervical change. BP more stable. Labetalol given x 1; getting D5W and on sliding scale. VAGINAL EXAM Dilitation: 1-2 Dilitation: 1.5 Effacement: 60 Effacement: 60 Station: -3 Station: -2 FETUS A FHR - Baseline: 140s Monitoring: External US Accelerations: 15X15 Decelerations: None FHR Category: Category I : 37.2 FETUS C SIGNATURE: 14,[id number];13,[id number];10,[id number] Signature: with User ID: [email or web address]
[2018-04-26] MEDS ORDERED: OXYTOCIN/NORMAL SALINE 20 UNIT/1,000 ML RTUINJ IV PRN ×3 (07:36→22:53)
[2018-04-26 07:57] LABS: INTERNATIONAL RATION (INR) 0.99; PROTHROMBIN TIME 13.6 SEC (11.4-15.4)
[2018-04-26 07:58] LABS: ABSOLUTE LYMPHOCYTES (AUTO) 1.1 10^3/uL (0.5-4.7); ABSOLUTE MONOCYTES (AUTO) 0.4 10^3/uL (0.1-1.4); ABSOLUTE NEUT (AUTO) 11.2 10^3/uL (1.7-8.2); BASOPHILS % (AUTO) 0.1 % (0-2); HEMATOCRIT 34.9 % (36.0-47.0); HEMOGLOBIN 11.4 g/dL (12.0-15.5); LYMPHOCYTES % (AUTO) 8.4 % (13-45); MEAN CORPUSCULAR HEMOGLOBIN 28.8 pg (27.0-33.4); MEAN CORPUSCULAR HGB CONC 32.7 g/dL (32.0-36.0); MEAN CORPUSCULAR VOLUME 88 fl (80-97); MONOCYTES % (AUTO) 3.4 % (3-13); PARTIAL THROMBOPLASTIN TIME 29.4 SEC (23.5-35.8); PLATELET COUNT 376 10^3/uL (150-450); RED BLOOD COUNT 3.97 10^6/uL (3.72-5.28); SEGMENTED NEUTROPHILS % (AUTO) 88.1 % (42-78); TOTAL CELLS COUNTED % (AUTO) 100 %; WHITE BLOOD COUNT 12.7 10^3/uL (4.0-10.5)
[2018-04-26 08:12] LABS: ALANINE AMINOTRANSFERASE 22 U/L (9-52); ALBUMIN 3.2 g/dL (3.5-5.0); ALKALINE PHOSPHATASE 216 U/L (38-126); ANION GAP 13 (5-19); ASPARTATE AMINO TRANSFERASE 18 U/L (14-36); BILIRUBIN,DIRECT 0.7 mg/dL (0.0-0.4); BILIRUBIN,TOTAL 0.9 mg/dL (0.2-1.3); BLOOD UREA NITROGEN 3 mg/dL (7-20); CALCIUM 9.6 mg/dL (8.4-10.2); CARBON DIOXIDE 20 mmol/L (22-30); CHLORIDE 107 mmol/L (98-107); GLUCOSE 127 mg/dL (75-110); POTASSIUM 3.6 mmol/L (3.6-5.0); SODIUM 140.4 mmol/L (137-145); TOTAL PROTEIN 6.1 g/dL (6.3-8.2); URIC ACID 4.6 mg/dL (2.5-6.2)
[2018-04-26] MEDS ORDERED: BUPIVACAINE HCL 0.5 % INJ/PF 30 ML SDV ONE (09:48)
[2018-04-26] MEDS ORDERED: EPHEDRINE SULFATE INJ 50 MG/1 ML AMPULE ONE (09:48)
[2018-04-26] MEDS ORDERED: FENTANYL/BUPIVACAINE/NS/PF 300 MCG/150 ML RTUINJ EPI ONE (09:48)
[2018-04-26] MEDS: ESCITALOPRAM OXALATE 10 MG TABLET PO SCH (11:01)
[2018-04-26] MEDS: MAGNESIUM OXIDE 400 MG TABLET PO SCH (11:01)
[2018-04-26] MEDS ORDERED: LIDOCAINE 2% INJ-PF (20 MG/ML) 10 ML AMPUL ONE ×2 (16:50→18:57)
[2018-04-26] MEDS ORDERED: ONDANSETRON HCL INJ/PF 4 MG/2 ML SDV ONE ×2 (19:27→21:43)
[2018-04-26] MEDS ORDERED: HYDRALAZINE HCL INJ/PF 20 MG/1 ML SDV IV ONE (19:45)
[2018-04-26] MEDS ORDERED: ONDANSETRON HCL INJ/PF 4 MG/2 ML SDV IV ONE (20:00)
[2018-04-26] MEDS ORDERED: NALBUPHINE HCL INJ 10 MG/1 ML AMPULE INJ ONE (20:00)
[2018-04-26] MEDS ORDERED: PENICILLIN G-K 5 MILLION UNIT VIAL IV ONE (20:39)
[2018-04-26] MEDS ORDERED: MISOPROSTOL 0.2 MG TABLET ONE (21:20)
[2018-04-26] MEDS ORDERED: CITRIC ACID/SODIUM CITRATE ORAL SOLN 15 ML UDCUP ONE (21:20)
[2018-04-26] MEDS ORDERED: CEFAZOLIN 2 GM/D5W RTU 2 GM/50 ML RTUPB IV ONE (21:20)
[2018-04-26] MEDS ORDERED: CARBOPROST TROMETHAMINE INJ 250 MCG/1 ML AMPULE ONE (21:22)
[2018-04-26] MEDS ORDERED: OXYTOCIN 10 UNIT/ML VIAL ONE (21:43)
[2018-04-26] MEDS ORDERED: BUPIVACAINE HCL/DEX-WATER/PF 15 MG/2 ML AMPULE ONE (21:43)
[2018-04-26] MEDS ORDERED: FENTANYL CITRATE INJ/PF 100 MCG/2 ML AMPUL ONE (21:56)
[2018-04-26] MEDS ORDERED: PROMETHAZINE HCL INJ 25 MG/1 ML VIAL IV PRN ×2 (22:50→22:53)
[2018-04-26] MEDS ORDERED: DIPH/PERTUSS(ACELL)/TETANUS VAC/PF 0.5 ML SYR (>=10YO) IM PRN ×2 (22:50→22:53)
[2018-04-26] MEDS ORDERED: MEASLES,MUMPS&RUBELLA VACC/PF 0.5 ML VIAL SUBCUT PRN ×2 (22:50→22:53)
[2018-04-26] MEDS ORDERED: OXYCODONE-ACETAMINOPHEN 5-325 MG TABLET PO PRN ×3 (22:50→22:53)
[2018-04-26] MEDS ORDERED: SIMETHICONE 80 MG TAB.CHEW PO PRN ×2 (22:50→22:53)
[2018-04-26] MEDS ORDERED: ACETAMINOPHEN 325 MG TABLET PO PRN ×2 (22:50→22:53)
[2018-04-26] MEDS ORDERED: ACETAMINOPHEN 1,000 MG/100 ML RTUPB IV PRN (22:53)
--- NOTE | 2018-04-26 22:56 | PDOC DELIVERY SUMMARY ---
Delivery Summary - Maternal Risk Factors: Gestational Diabetes, Pre-Eclampsia Ruptured Membranes: SROM Fluids: Clear - Delivery Labor: Augmentation, Prolonged- Greater Than 20 Hours Presentation: Vertex Heart Rate Monitoring: Done Pre-Operatively, Externally, Internally Uterine Contraction Monitoring: Internal Support Person Present: Yes : Emergency Placenta: Within Normal Limits Nuchal Cord: No - Medications Type of Anesthesia:: Spinal
[2018-04-26] MEDS ORDERED: OXYTOCIN/NORMAL SALINE 20 UNIT/1,000 ML RTUINJ ONE (23:01)
[2018-04-26] MEDS ORDERED: ACETAMINOPHEN 1,000 MG/100 ML RTUPB IV ONE (23:10)
[2018-04-26] MEDS ORDERED: KETOROLAC TROMETHAMINE INJ/PF 30 MG/1 ML SDV ONE (23:39)
[2018-04-27] MEDS ORDERED: MORPHINE SULFATE 10 MG/ML INJ ONE (00:19)
[2018-04-27] MEDS ORDERED: MORPHINE SULFATE 10 MG/ML INJ IV ONE (00:40)
--- NOTE | 2018-04-27 00:46 | Warning Signs in Babies ---
VOD Warning Signs Datetime Report Generated by [facility]: 04/27/2018 00:45 VOD#608 -Warning Signs in Babies: Needs to be viewed. (02/27/2018 10:47:Cyndi Ayon RN)
--- NOTE | 2018-04-27 00:47 | Delivery Summary ---
Del Sum A-C Datetime Report Generated by CPN: 04/27/2018 00:46 DELIVERY PERSONNEL DELIVERY PERSONNEL: [id number] Delivery Doctor:: Georges Manning MD Anesthesiologist:: Jose Hidalgo MD GLOST KILN OPERATOR:: Peter Garcia CRNA Labor and Delivery Nurse:: Cyndi Ayon RN Client Relationship Consultant:: Cyndi Ayon RN Nursery Nurse:: Suki Mata RN Lacquer Sizer/PLANT PATHOLOGIST: ST Rubina Lacquer Sizer/PLANT PATHOLOGIST: Get Maxwelline, ST MATERNAL INFORMATION Delivery Anesthesia: Epidural Medications After Delivery: Pitocin Drip 20 Units/1000ml NSS LABOR SUMMARY EDC: 05/15/2018 00:00 No. Babies in Womb: 1 Attempted: No Labor Anesthesia: Epidural LABOR INFORMATION Reason for Induction: Pre-Eclampsia; Maternal Diabetes Cervical Ripening Agents: Cervidil Oxytocin: Induction Group B Beta Strep: Positive Antibiotics # of Doses: 3 Antibiotics Time of Last Dose: 2042 Name of Antibiotic Given: PCN Steroids Given: None Reason Steroids Not Administered: Not Applicable MEMBRANES Membranes Rupture Method: Spontaneous Rupture of Membranes: 04/26/2018 01:09 Length of Rupture (hr): 21.00 Amniotic Fluid Color: Clear Amniotic Fluid Amount: Small Amniotic Fluid Odor: Normal STAGES OF LABOR Stage 3 hr: 0 Stage 3 min: 1 VAGINAL DELIVERY Episiotomy: None Laceration #1: None Laceration Extension #1: N/A Laceration Repair: Not Applicable Sponge Count Correct: N/A Sharps Count Correct: N/A CSECTION DELIVERY Primary Indication: Arrest of Descent Secondary Indication: Failure of Descent CSection Urgency: Non-Scheduled CSection Incidence: Primary Labor: Labor Elective: Nonelective CSection Incision: Lower Uterine Transverse BABY A INFORMATION Delivery Date/Time: 04/26/2018 22:09 Method of Delivery: Born in Route : No : N/A Forceps: N/A Vacuum Extraction: N/A Shoulder Dystocia : No PRESENTATION/POSITION BABY A Presentation: Cephalic Cephalic Presentation: Vertex Breech Presentation: N/A PLACENTA INFORMATION BABY A Placenta Delivery Time : 04/26/2018 22:10 Placenta Method of Delivery: Manual Removal Placenta Status: Delivered SCORES BABY A Heart Rate 1 min: >100 bpm Resp Effort 1 min: Good Cry Reflex Irritability 1 min: Cough or Sneeze or Pulls Away Muscle Tone 1 min: Active Motion Color 1 min: Body [place], Extremities Blue Resuscitation Effort 1 min: Tactile Stimulation SCORE 1 MIN: 9 Heart Rate 5 min: >100 bpm Resp Effort 5 min: Good Cry Reflex Irritability 5 min: Cough or Sneeze or Pulls Away Muscle Tone 5 min: Active Motion Color 5 min: Body [place], Extremities Blue Resuscitation Effort 5 min: Tactile Stimulation SCORE 5 MIN: 9 INFANT INFORMATION BABY A Gestational Age at Delivery: 37.2 Gestational Status: Early Term- 37- 38.6 Weeks Outcome : Liveborn Infant Condition : Stable Infant Sex: Female WEIGHT/LENGTH BABY A Birthweight (gm): 2730 Weight (lb): 6 Infant Weight (oz): 0 Infant Length (in): 18.00 Infant Length (cm): 45.72 CORD INFORMATION BABY A No. Cord Vessels: 3 Nuchal Cord : N/A Cord Blood Taken: Yes-For Eval (Mom's Blood Type - or O+) ASSESSMENT BABY A Complications: None Physical Findings at Delivery: Within Normal Limits Skin to Skin: No Transferred To: [facility] BABY B INFORMATION : N/A SIGNATURES Signature: with User ID: [email or web address]
[2018-04-27] MEDS: OXYCODONE-ACETAMINOPHEN 5-325 MG TABLET PO PRN ×4 (01:09→19:46)
[2018-04-27] MEDS: LANSOPRAZOLE 15 MG TAB.RAP.DR PO SCH ×2 (02:56→05:11)
[2018-04-27] MEDS: MORPHINE SULFATE 10 MG/ML INJ IM PRN ×3 (03:16→11:49)
[2018-04-27] MEDS: KETOROLAC TROMETHAMINE INJ/PF 30 MG/1 ML SDV IV SCH ×3 (05:10→21:12)
[2018-04-27 05:30] LABS: HEMATOCRIT 29.3 % (36.0-47.0); HEMOGLOBIN 9.6 g/dL (12.0-15.5); MEAN CORPUSCULAR HEMOGLOBIN 28.8 pg (27.0-33.4); MEAN CORPUSCULAR HGB CONC 32.6 g/dL (32.0-36.0); MEAN CORPUSCULAR VOLUME 88 fl (80-97); PLATELET COUNT 368 10^3/uL (150-450); RED BLOOD COUNT 3.31 10^6/uL (3.72-5.28); WHITE BLOOD COUNT 12.8 10^3/uL (4.0-10.5)
[2018-04-27] MEDS ORDERED: DOCUSATE SODIUM 100 MG CAPSULE PO SCH (10:00)
[2018-04-27] MEDS ORDERED: PRENATAL VITAMIN W DHA CAPSULE PO SCH (10:00)
[2018-04-27] MEDS: DOCUSATE SODIUM 100 MG CAPSULE PO SCH ×2 (10:01→18:32)
[2018-04-27] MEDS: PRENATAL VITAMIN W DHA CAPSULE PO SCH (10:01)
[2018-04-27] MEDS: ESCITALOPRAM OXALATE 10 MG TABLET PO SCH (10:02)
[2018-04-27] MEDS: MAGNESIUM OXIDE 400 MG TABLET PO SCH (10:02)
--- NOTE | 2018-04-27 10:35 | PDOC PROGRESS REPORT ---
Subjective-OB Progress Note for:: 04/27/18 Subjective: Pt doing well, no complaints. Reports passing gas, regular diet, light bleeding and voiding without difficulty. Physical Exam (OB) Vital Signs: Temp Pulse Resp BP Pulse Ox 98.8 F 103 H 16 124/72 96 04/27/18 08:05 04/27/18 08:05 04/27/18 08:05 04/27/18 08:05 04/27/18 08:05 Intake & Output 04/26/18 04/27/18 04/28/18 06:59 06:59 06:59 Output Total 350 Balance -350 - PIH/Pre-Eclampsia Headache: Absent - Dressing Removed: No - pressure dressing Incision: Dressing - Abdomen Description: Tender, Soft, Round Hernia Present: No Fundal Description: Firm, Midline Fundal Height: u/u - u/2 Objective-Diagnostic Laboratory: 04/27/18 04:27 04/26/18 07:23 04/27/18 04:27 WBC 12.8 H RBC 3.31 L Hgb 9.6 L Hct 29.3 L MCV 88 MCH 28.8 MCHC 32.6 RDW 22.0 H Plt Count 368 Assessment and Plan(PN) - Assessment and Plan (1) Chronic hypertension with superimposed pre-eclampsia Is this a current diagnosis for this admission?: Yes (2) Obesity Qualifiers: Obesity type: due to excess calories Serious obesity comorbidity presence: unspecified whether serious comorbidity present Body mass index: BMI 40.0- 44.9 Is this a current diagnosis for this admission?: Yes (3) and 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
[2018-04-27] MEDS: RINGERS SOLUTION,LACTATED 1,000 ML IV PRN (11:49)
[2018-04-27] MEDS: IBUPROFEN 800 MG TABLET PO SCH (23:14)
[2018-04-28] MEDS: OXYCODONE-ACETAMINOPHEN 5-325 MG TABLET PO PRN ×3 (00:01→10:04)
[2018-04-28] MEDS: LANSOPRAZOLE 15 MG TAB.RAP.DR PO SCH (05:58)
[2018-04-28] MEDS: IBUPROFEN 800 MG TABLET PO SCH ×2 (05:58→13:20)
[2018-04-28] MEDS: PRENATAL VITAMIN W DHA CAPSULE PO SCH (10:04)
[2018-04-28] MEDS: MAGNESIUM OXIDE 400 MG TABLET PO SCH (10:04)
[2018-04-28] MEDS: ESCITALOPRAM OXALATE 10 MG TABLET PO SCH (10:05)
[2018-04-28] MEDS: DOCUSATE SODIUM 100 MG CAPSULE PO SCH (10:05)
--- NOTE | 2018-04-28 10:48 | PDOC PROGRESS REPORT ---
Subjective-OB Progress Note for:: 04/28/18 Subjective: Doing well, holding baby, ready to go home, bottle feeding Physical Exam (OB) Vital Signs: Temp Pulse Resp BP Pulse Ox 98.4 F 106 H 18 135/82 H 98 04/28/18 07:43 04/28/18 07:43 04/28/18 07:43 04/28/18 07:43 04/28/18 07:43 Intake & Output 04/27/18 04/28/18 04/29/18 06:59 06:59 06:59 Intake Total 1400 400 Output Total 350 650 Balance -350 750 400 - PIH/Pre-Eclampsia DTR's: 2 + Clonus: Negative Headache: Absent Epigastric Pain: No Visual Changes: No - Dressing Removed: Yes - no swelling, redness or drainage noted Incision: Well Approximated Closure Type: Surgical Glue - Lochia Lochia Amount: Scant < 10 ml Lochia Color: Rubra/Red - Abdomen Description: Tender, Soft Hernia Present: No Fundal Description: Firm, Midline Fundal Height: u/u - u/2 Objective-Diagnostic Laboratory: 04/27/18 04:27 04/26/18 07:23 Assessment and Plan(PN) - Assessment and Plan (1) Chronic hypertension with superimposed pre-eclampsia Is this a current diagnosis for this admission?: Yes (2) Obesity Qualifiers: Obesity type: due to excess calories Serious obesity comorbidity presence: unspecified whether serious comorbidity present Body mass index: BMI 40.0- 44.9 Is this a current diagnosis for this admission?: Yes (3) and 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
--- NOTE | 2018-04-28 10:53 | PDOC DISCHARGE SUMMARY ---
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 Is this a current diagnosis for this admission?: Yes (4) Diabetes mellitus affecting in third trimester Is this a current diagnosis for this admission?: Yes Discharge Data - Discharge Medication Prescriptions: Oxycodone HCl/Acetaminophen [Percocet 5-325 mg Tablet] 1 tab PO Q4HP PRN #20 tablet PRN Reason: Ibuprofen [Motrin 800 mg Tablet] 800 mg PO Q6 #60 tablet Home Medications: Docusate Sodium [Colace] 100 mg PO BID 02/27/18 Escitalopram Oxalate [Lexapro 10 mg Tablet] 10 mg PO DAILY 02/27/18 Vit Calc,Iron,Folic [ Vitamins] 1 tab PO DAILY 02/27/18 Butalb/Acetaminophen/Caffeine [Fioricet (50-325-40 mg) Tablet] 2 tab PO Q6HP PRN #30 each 03/28/18 Ibuprofen [Motrin 800 mg Tablet] 800 mg PO Q6 #60 tablet 04/28/18 Lansoprazole [Prevacid 15 mg Odt Tablet] 15 mg PO Q6AM tab. 04/28/18 Oxycodone HCl/Acetaminophen [Percocet 5-325 mg Tablet] 1 tab PO Q4HP PRN #20 tablet 04/28/18 Gestational Age: 37 Reason(s) for Admission: Induction of Labor, PIH, Gestional Diabetes Procedures: NST, Ultrasound Intrapartum Procedure(s): : Low Cervical, Transverse - Diagnosis Test Laboratory: Temp Pulse Resp BP Pulse Ox 98.4 F 106 H 18 135/82 H 98 04/28/18 07:43 04/28/18 07:43 04/28/18 07:43 04/28/18 07:43 04/28/18 07:43 04/03/18 04/03/18 04/09/18 09:20 11:09 06:19 RBC 3.53 L 3.49 L Hgb 9.4 L 9.5 L Hct 28.6 L 29.1 L Urine Opiates Screen NEGATIVE 04/10/18 04/17/18 04/20/18 15:40 07:16 17:54 RBC 3.37 L 3.52 L 3.70 L Hgb 9.4 L 10.0 L 10.6 L Hct 28.3 L 30.7 L 32.3 L Urine Opiates Screen 04/24/18 04/26/18 04/27/18 04:43 07:23 04:27 RBC 3.39 L 3.97 3.31 L Hgb 9.9 L 11.4 L 9.6 L Hct 29.6 L 34.9 L 29.3 L Urine Opiates Screen - Discharge information/Instructions Discharge Activity: Activity As Tolerated, No Lifting Over 10 Pounds, No Lifting /Push/Pulling, Pelvic Rest Discharge Diet: As Tolerated, Regular Disposition: HOME, SELF-CARE Follow up with: [facility] in: 4, Days
[2018-04-28 12:33] VITALS: BP 117/63
== END 2018-04-28 16:08 | disposition home or self-care (01) | DRG 786 ==
LOC: LC 09:10 → LR 09:15 → 2N 15:17 → LR 04-24 03:25 → 2N 04-27 00:52
PROVIDERS: ADMIT Obstetrics & Gynecology; ATTEND Obstetrics & Gynecology
PROC: 4A1HXCZ Monitoring of Products of Conception, Cardiac Rate, External Approach (ICD-10-PCS; 2018-04-03)
PROC: 10D00Z1 Extraction of Products of Conception, Low, Open Approach (ICD-10-PCS; principal; 2018-04-26)
PROC: 3E0P7VZ Introduction of Hormone into Female Reproductive, Via Natural or Artificial Opening (ICD-10-PCS; 2018-04-26)
PROC: 3E033VJ Introduction of Other Hormone into Peripheral Vein, Percutaneous Approach (ICD-10-PCS; 2018-04-26)
PROC: 3E0234Z Introduction of Serum, Toxoid and Vaccine into Muscle, Percutaneous Approach (ICD-10-PCS; 2018-04-28)
DX: O62.1 Secondary uterine inertia (principal); O24.12 Pre-existing type 2 diabetes mellitus, in childbirth; O10.92 Unspecified pre-existing hypertension complicating childbirth; O11.4 Pre-existing hypertension with pre-eclampsia, complicating childbirth; O99.214 Obesity complicating childbirth; E66.09 Other obesity due to excess calories; E11.9 Type 2 diabetes mellitus without complications; O99.824 Streptococcus B carrier state complicating childbirth; Z3A.37 37 weeks gestation of pregnancy; Z23 Encounter for immunization; Z37.0 Single live birth
CPT/HCPCS: 1961; 36415; 59025; 76815; 80053; 80307; 81001; 82570; 82728; 82962; 83615; 84156; 84550; 85025; 85027; 85379; 85610; 85730; 86592; 86762; 86850; 86900; 86901; 87081; 87491; 87591; 90707; 93005; 93010; 94760; 94799; J0131; J0360; J0690; J1439; J1815; J1885; J2270; J2300; J2405; J2540; J2550; J2590; J3010; J3490; J7030; J7050; J7120; S0119; S0183

== ENCOUNTER 2018-09-10 16:56 | Emergency (ER) | payer BC ==
[2018-09-10] MEDS ORDERED: DIPHENHYDRAMINE HCL 50 MG/ML VIAL IV ONE (17:36)
[2018-09-10] MEDS ORDERED: ACETAMINOPHEN 325 MG TABLET PO ONE (17:36)
[2018-09-10] MEDS ORDERED: PROCHLORPERAZINE EDISYLATE INJ 10 MG/2 ML VIAL IV ONE (17:36)
--- NOTE | 2018-09-10 17:40 | ER Document Report ---
Addendum entered and electronically signed by CAT FERNANDEZ NP 09/10/18 20:09: Course - Re-evaluation Re-evalutation: 09/10/18 20:06 Patient states that her headache pain is resolved at this time. Patient states she is feeling much better and would like to be discharged. Patient states that she needs to get home to her small child. Patient advised that additional laboratory tests need to be added on. Patient does not want to stay and wait for the results. Patient states that she has had chronically elevated white blood cell count has had numerous studies to evaluate this finding. Patient a dvised of low TSH test results and need for additional testing. Patient declines waiting for these test to be performed. Patient states that she will follow-up with her primary doctor tomorrow so that they can follow-up this finding. The patient has decided not to proceed with further recommended testing or treatment to determine the cause of her symptoms. The risk and alternatives to the recommendation were discussed the patient voiced understanding. The patient appears clinically to have the capacity to make this decision. The patient was instructed that they could return to the ER at any time to complete the testing or treatment. - Vital Signs Vital signs: Temp Pulse Resp BP Pulse Ox 98.2 F 92 16 158/113 H 99 09/10/18 17:17 09/10/18 17:17 09/10/18 17:17 09/10/18 17:17 09/10/18 17:17 - Laboratory Result Diagrams: 09/10/18 18:16 09/10/18 18:16 Laboratory results interpreted by me: 09/10/18 09/10/18 09/10/18 18:16 18:16 18:16 WBC 11.8 H RDW 14.1 H Plt Count 478 H Absolute Neutrophils 8.4 H Carbon Dioxide 31 H Calcium 10.3 H Alkaline Phosphatase 132 H Total Protein 8.4 H TSH < 0.01 L - Diagnostic Test Radiology reviewed: Reports reviewed Original Note: ED Medical Screen (RME) - General Chief Complaint: Chest Pain Stated Complaint: CHEST PAIN Time Seen by Provider: 09/10/18 17:28 Mode of Arrival: Ambulatory Information source: Patient Notes: Patient presents complaining of 3-day history of chest pain with palpitations. Patient also reports elevated blood pressure at home. Patient states she has a history of preeclampsia and they were monitoring her blood pressure after delivery 4 months ago but have not put her on any blood pressure medications. Patient does complain of nausea and diarrhea. Patient reports a sudden onset headache 2 days ago that did improve but then returned again with severe headache pain today. Patient states she does feel disoriented at times and has trouble focusing. I have greeted and performed a rapid initial assessment of this patient. A comprehensive ED assessment and evaluation of the patient, analysis of test results and completion of the medical decision making process will be conducted by additional ED providers. TRAVEL OUTSIDE OF THE [place] IN LAST 30 DAYS: No - Related Data Allergies/Adverse Reactions: No Known Allergies Allergy (Verified 09/10/18 16:57) Past Medical History - Social History Chew tobacco use (# tins/day): No Frequency of alcohol use: None Drug Abuse: None Renal/ Medical History: Reports: Hx Kidney Stones. Denies: Hx Peritoneal Dialysis Past Surgical History: Reports: Hx Section, Hx Oral Surgery - [place], Hx Tonsillectomy Physical Exam - Vital signs Vitals: Temp Pulse Resp BP Pulse Ox 98.2 F 92 16 158/113 H 99 09/10/18 17:17 09/10/18 17:17 09/10/18 17:17 09/10/18 17:17 09/10/18 17:17 - General General appearance: Appears well, Alert In distress: None - Neurological Neuro grossly intact: Yes Cognition: Normal [place] Coma Scale Eye Opening: Spontaneous [place] Coma Scale Verbal: Oriented [place] Coma Scale Motor: Obeys Commands [place] Coma Scale Total: 15 Course - Vital Signs Vital signs: Temp Pulse Resp BP Pulse Ox 98.2 F 92 16 158/113 H 99 09/10/18 17:17 09/10/18 17:17 09/10/18 17:17 09/10/18 17:17 09/10/18 17:17
--- NOTE | 2018-09-10 18:18 | RADIOLOGY REPORT (SQ) ---
EXAM DESCRIPTION: CHEST 2 VIEWS COMPLETED DATE/TIME: 09/10/2018 6:06 pm REASON FOR STUDY: cp COMPARISON: None. EXAM PARAMETERS: NUMBER OF VIEWS: two views TECHNIQUE: Digital Frontal and Lateral radiographic views of the chest acquired. RADIATION DOSE: NA LIMITATIONS: none FINDINGS: LUNGS AND PLEURA: No opacities, masses or pneumothorax. No pleural effusion. MEDIASTINUM AND HILAR STRUCTURES: No masses or contour abnormalities. HEART AND VASCULAR STRUCTURES: Heart normal size. No evidence for failure. BONES: No acute findings. HARDWARE: None in the chest. OTHER: No other significant finding. IMPRESSION: NO ACUTE RADIOGRAPHIC FINDING IN THE CHEST. TECHNICAL DOCUMENTATION: JOB ID: [id number] [employer]- All Rights Reserved Reading location - IP/workstation name: [email or web address]
--- NOTE | 2018-09-10 18:26 | RADIOLOGY REPORT (SQ) ---
EXAM DESCRIPTION: CT HEAD WITHOUT COMPLETED DATE/TIME: 09/10/2018 6:12 pm REASON FOR STUDY: [place] COMPARISON: None. TECHNIQUE: Axial images acquired through the brain without intravenous contrast. Images reviewed wi th bone, brain and subdural windows. Additional sagittal and coronal reconstructions were generated. Images stored on PACS. All CT scanners at this facility use dose modulation, iterative reconstruction, and/or weight based d osing when appropriate to reduce radiation dose to as low as reasonably achievable (ALARA). [facility]: Dose Right [facility]: CareDose [facility]: Dose Right [facility]: Teradose 4D [facility]: HealthyChic RADIATION DOSE: CT Rad equipment meets quality standard of care and radiation dose reduction techniq ues were employed. CTDIvol: 53.2 mGy. DLP: 1097 mGy-cm. mGy. LIMITATIONS: None. FINDINGS: VENTRICLES: Normal size and contour. CEREBRUM: No masses. No hemorrhage. No midline shift. No evidence for acute infarction. Normal gra y/white matter differentiation. No areas of low density in the white matter. CEREBELLUM: No masses. No hemorrhage. No alteration of density. No evidence for acute infarction. EXTRAAXIAL SPACES: No fluid collections. No masses. ORBITS AND GLOBE: No intra- or extraconal masses. Normal contour of globe without masses. CALVARIUM: No fracture. PARANASAL SINUSES: No fluid or mucosal thickening. 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 SOFT TISSUES: No mass or hematoma. OTHER: No other significant finding. IMPRESSION: NO ACUTE INTRACRANIAL IMAGING FINDINGS. EVIDENCE OF ACUTE STROKE: NO. COMMENT: Quality ID # [id number]: Final reports with documentation of one or more dose reduction techniques (e.g., Automated exposure control, adjustment of the mA and/or kV according to patient size, use of iterative reconstruction technique) TECHNICAL DOCUMENTATION: JOB ID: [id number] [employer]- All Rights Reserved Reading location - IP/workstation name: [email or web address]
[2018-09-10 18:31] LABS: ABSOLUTE BASOPHILS # (AUTO) 0.1 10^3/uL (0.0-0.2); ABSOLUTE EOSINOPHILS # (AUTO) 0.1 10^3/uL (0.0-0.6); ABSOLUTE LYMPHOCYTES (AUTO) 2.7 10^3/uL (0.5-4.7); ABSOLUTE MONOCYTES (AUTO) 0.5 10^3/uL (0.1-1.4); ABSOLUTE NEUT (AUTO) 8.4 10^3/uL (1.7-8.2); BASOPHILS % (AUTO) 1.2 % (0-2); EOSINOPHILS % (AUTO) 0.7 % (0-6); HEMATOCRIT 41.1 % (36.0-47.0); HEMOGLOBIN 13.8 g/dL (12.0-15.5); LYMPHOCYTES % (AUTO) 22.6 % (13-45); MEAN CORPUSCULAR HEMOGLOBIN 29.5 pg (27.0-33.4); MEAN CORPUSCULAR HGB CONC 33.5 g/dL (32.0-36.0); MEAN CORPUSCULAR VOLUME 88 fl (80-97); MONOCYTES % (AUTO) 4.1 % (3-13); PLATELET COUNT 478 10^3/uL (150-450); RED BLOOD COUNT 4.67 10^6/uL (3.72-5.28); RED CELL DISTRIBUTION WIDTH 14.1 % (11.5-14.0); SEGMENTED NEUTROPHILS % (AUTO) 71.4 % (42-78); TOTAL CELLS COUNTED % (AUTO) 100 %; WHITE BLOOD COUNT 11.8 10^3/uL (4.0-10.5)
[2018-09-10 18:50] LABS: ALANINE AMINOTRANSFERASE 38 U/L (9-52); ALBUMIN 4.5 g/dL (3.5-5.0); ALKALINE PHOSPHATASE 132 U/L (38-126); ANION GAP 8 (5-19); ASPARTATE AMINO TRANSFERASE 29 U/L (14-36); BILIRUBIN,DIRECT 0.2 mg/dL (0.0-0.4); BILIRUBIN,TOTAL 0.3 mg/dL (0.2-1.3); BLOOD UREA NITROGEN 13 mg/dL (7-20); CALCIUM 10.3 mg/dL (8.4-10.2); CARBON DIOXIDE 31 mmol/L (22-30); CHLORIDE 103 mmol/L (98-107); GLUCOSE 101 mg/dL (75-110); POTASSIUM 4.2 mmol/L (3.6-5.0); SODIUM 142.1 mmol/L (137-145); TOTAL PROTEIN 8.4 g/dL (6.3-8.2)
[2018-09-10 20:12] VITALS: BP 152/116
--- NOTE | 2018-09-10 20:51 | EKG REPORT ---
SEVERITY:- NORMAL ECG - SINUS RHYTHM : Confirmed by: Abi Lobo MD 10-Sep-2018 20:50:19
[2018-09-10 21:06] LABS: FREE T3 4.24 pg/mL (2.77-5.27); FREE T4 (FREE THYROXINE) 1.11 ng/dL (0.78-2.19)
== END 2018-09-10 20:15 | disposition left against medical advice (07) ==
LOC: ER 16:56
DX: R51 Headache (principal); R00.2 Palpitations; Z87.442 Personal history of urinary calculi
CPT/HCPCS: 93005; 99284; 96374; 96375; 36415; 84439; 84443; 84703; 85025; 80053; 84484; 84481; 71046; 70450; 93010; J1200; J0780